=== PATIENT | male | born 1960 | race Asian ===

== ENCOUNTER 2017-10-21 20:07 | Emergency (ER) | payer BC ==
[~2017-10-21] VITALS: Ht 177.8 cm; Wt 86.2 kg
[~2017-10-21 20:07] MED LIST: ALLO100T PO
[2017-10-21 20:15] VITALS: BP_SYST 176
--- NOTE | 2017-10-21 20:20 | NUR ---
Patient to ER bed 07 to gown for evaluation. Side rails up. Report given to STEPHANI CHAVEZ
--- NOTE | 2017-10-21 20:25 | NUR ---
Pt AAOx4 ambulated into ED c/o 02/05 abdominal pain x 22 days s/p liver biopsy. Pt takes protonix today with little relief. Pt denies N/V. 1 episode of diarrhea. No other injuries/complaints per pt/noted. Will continue to monitor. Friends at bedside.
--- NOTE | 2017-10-21 20:30 | NUR ---
ER Dr. Cuello at bedside examining patient.
[2017-10-21] MEDS ORDERED: NACL 0.9% 1,000 ML IV ONE (20:45)
[2017-10-21] MEDS ORDERED: LIDOCAINE VISCOUS 2%, 15 ML UDC MM ONE (21:15)
[2017-10-21] MEDS ORDERED: BELLADONNA ALKALOIDS/PHENOBARB 5 ML UDC PO ONE (21:15)
[2017-10-21] MEDS ORDERED: MAG-AL HYDROX/SIMETH 30 ML UDC PO ONE (21:15)
--- NOTE | 2017-10-21 21:35 | NUR ---
Pt laying comfortably in bed with no signs of distress. at bedside. Will continue to monitor.
[2017-10-21 22:22] LABS: BASOPHILS % (AUTO) 1.6 % (0.0-2.0); EOSINOPHILS # (AUTO) 0.3 K/uL (0.0-0.4); EOSINOPHILS % (AUTO) 10.9 % (0.0-4.0); HEMATOCRIT 41.1 % (36-54); HEMOGLOBIN 13.7 g/dL (14.0-18.0); LYMPHOCYTES # (AUTO) 0.6 K/uL (1.0-5.5); LYMPHOCYTES % (AUTO) 23.6 % (20.5-51.5); MEAN CORPUSCULAR HEMOGLOBIN 31 pg (27-31); MEAN CORPUSCULAR HGB CONC 33 % (32-36); MEAN CORPUSCULAR VOLUME 93 fL (79.0-98.0); MONOCYTES # (AUTO) 0.2 K/uL (0.0-1.0); MONOCYTES % (AUTO) 8.7 % (1.7-9.3); NEUTROPHILS # (AUTO) 1.4 K/uL (1.8-7.7); NEUTROPHILS % (AUTO) 55.2 % (40.0-70.0); PLATELET COUNT (AUTO) 50 K/uL (130-430); RED BLOOD CELL COUNT(AUTO) 4.43 MIL/uL (4.2-6.2); RED CELL DISTRIBUTION WIDTH 13.9 % (9.0-15.0); WHITE BLOOD COUNT (AUTO) 2.5 K/uL (4.8-10.8)
[2017-10-21 22:34] LABS: INR 1.3 (0.80-1.20); PROTHROMBIN TIME 13.1 SECS (9.5-12.5)
[2017-10-21 22:36] LABS: CREATININE 0.9 mg/dL (0.55-1.30); POTASSIUM 3.9 mmol/L (3.5-5.1)
[2017-10-21 22:41] LABS: ALBUMIN 3.5 g/dL (3.4-4.8); TOTAL BILIRUBIN 2.6 mg/dL (0.0-1.0)
--- NOTE | 2017-10-21 23:03 | NUR ---
Patient given written and verbal discharge instructions and verbalizes understanding. ER MD Cuello discussed with patient the results and treatment provided. Patient in stable condition. ID arm band removed. IV catheter removed intact and dressing applied, no active bleeding. Rx of Tramadol given. Patient educated on pain management and to follow up with PMD. Pain Scale 0. Opportunity for questions provided and answered. Medication side effect fact sheet provided.
[2017-10-21 23:31] VITALS: BP_SYST 143
== END 2017-10-21 23:03 | disposition home or self-care (01) ==
LOC: SED 20:07
DX: K29.70 Gastritis, unspecified, without bleeding (principal); K57.90 Diverticulosis of intestine, part unspecified, without perforation or abscess without bleeding; D72.819 Decreased white blood cell count, unspecified; M10.9 Gout, unspecified
CPT/HCPCS: 36415; 74176; 80053; 85025; 85610; 85730; 99285; J2001; J7030

== ENCOUNTER 2018-02-05 22:02 | Inpatient (IN) | payer BC ==
[~2018-02-05] VITALS: Ht 180.3 cm; Wt 83.3 kg
[2018-02-05 22:12] VITALS: BP_SYST 153
--- NOTE | 2018-02-05 22:15 | NUR ---
Patient to bed 3 to await MD evaluation.
--- NOTE | 2018-02-05 22:20 | NUR ---
Patient to ER via triage with c/o generalized weakness x 1 day, and diarrhea x 1 day. Patient also c/o abdominal discomfort, patient is confused which is not his baseline. Patient is awake, alert but confused, patient able to ambulate to ER bed 3 with slow, steady gait in no acute distress, vital signs stable, respirations even and unlabored, skin warm and dry to touch. Awaiting evaluation by ER MD, will continue to observe and assess.
--- NOTE | 2018-02-05 22:25 | NUR ---
Dr Cuello at bedside to evaluate patient.
[2018-02-05] MEDS ORDERED: NACL 0.9% 1,000 ML IV ONE (22:30)
[2018-02-05 22:56] LABS: BASOPHILS % (AUTO) 1.2 % (0.0-2.0); EOSINOPHILS # (AUTO) 0.6 K/uL (0.0-0.4); EOSINOPHILS % (AUTO) 19.9 % (0.0-4.0); HEMATOCRIT 35.7 % (36-54); HEMOGLOBIN 11.9 g/dL (14.0-18.0); LYMPHOCYTES # (AUTO) 0.6 K/uL (1.0-5.5); LYMPHOCYTES % (AUTO) 18.5 % (20.5-51.5); MEAN CORPUSCULAR HEMOGLOBIN 33 pg (27-31); MEAN CORPUSCULAR HGB CONC 33 % (32-36); MEAN CORPUSCULAR VOLUME 100 fL (79.0-98.0); MONOCYTES # (AUTO) 0.3 K/uL (0.0-1.0); MONOCYTES % (AUTO) 8.1 % (1.7-9.3); NEUTROPHILS # (AUTO) 1.6 K/uL (1.8-7.7); RED BLOOD CELL COUNT(AUTO) 3.59 MIL/uL (4.2-6.2); RED CELL DISTRIBUTION WIDTH 19.7 % (9.0-15.0); WHITE BLOOD COUNT (AUTO) 3.1 K/uL (4.8-10.8)
--- NOTE | 2018-02-05 23:00 | NUR ---
Medication reconciliation completed with information provided by family. Any prior medication reconciliation on file was reviewed and corrected. Family also reports that patient takes a "medication for his heart, and a medication for his BP" Family does not remember the names of the medications.
[2018-02-05 23:08] LABS: ANION GAP 7 (5-15); CALCIUM 8.6 mg/dL (8.4-11.0); CHLORIDE 105 mmol/L (98-107); CREATININE 1.21 mg/dL (0.55-1.30); GLUCOSE 94 mg/dL (70-99); POTASSIUM 3.7 mmol/L (3.5-5.1); SODIUM SERUM 137 mmol/L (136-145); UREA NITROGEN, BLOOD 18 mg/dL (8-21)
[2018-02-05 23:13] LABS: ALANINE AMINOTRANSFERASE 66 U/L (12-78); ALBUMIN 2.7 g/dL (3.4-4.8); ASPARTATE AMINOTRANSFERASE 58 U/L (10-37); TOTAL BILIRUBIN 3.1 mg/dL (0.0-1.0)
[2018-02-05 23:16] LABS: GFR AFRICAN AMERICAN 79 mL/min (>90)
[2018-02-05] MEDS ORDERED: LACT10SO66 PO (23:17)
[2018-02-05 23:18] LABS: ACETAMINOPHEN < 1 ug/mL (1-30)
[2018-02-05 23:23] LABS: ALCOHOL, BLOOD < 3 mg/dL (<10)
[2018-02-05 23:24] LABS: BARBITURATE, URINE NEGATIVE (NEG <=200); BENZODIAZEPINE, URINE NEGATIVE (NEG <=150); CANNABINOID, URINE NEGATIVE (NEG <=50); COCAINE, URINE NEGATIVE (NEG <=150); METHAMPHETAMINES SCREEN,URINE NEGATIVE (NEG <=500); OPIATE, URINE NEGATIVE (NEG <=100); PHENCYCLIDINE SCREEN,URINE NEGATIVE (NEG <=25); UR TRICYCLIC ANTIDEPRESSANTS NEGATIVE (NEG <=300); URINE AMPHETAMINE NEGATIVE (NEG <=500); URINE METHADONE NEGATIVE (NEG <=200); URINE OXYCODONE SCREEN NEGATIVE (NEG <=100); URINE PROPOXYPHENE SCREEN NEGATIVE (NEG <=300)
[2018-02-05 23:44] LABS: NEUTROPHILS % (AUTO) 52.3 % (40.0-70.0); PLATELET COUNT (AUTO) 60 K/uL (130-430)
[2018-02-06] MEDS ORDERED: NEOMYCIN SULFATE 500 MG TABLET PO ONE
--- NOTE | 2018-02-06 | NUR ---
Patient resting quietly in no acute distress, vital signs stable, respirations even and unlabored, skin warm and dry to touch. Awaiting dispo.
[2018-02-06] MEDS ORDERED: NEOMYCIN SULFATE 500 MG TABLET ONE (00:31)
--- NOTE | 2018-02-06 01:00 | NUR ---
Patient will be admitted to care of Dr Wilkins. Admitted to tele unit. Will go to room 104-B. Belongings list completed. Summary report printed. Report will be given at bedside. Transfer to tele room 104-B via ACLS protocol. Licensed nurse present. IV present no signs or symptoms of infiltration.
--- NOTE | 2018-02-06 01:21 | NUR ---
ADMISSION NOTE Received patient from ER via rney under the care of Dr Wilkins. Patient admitted with diagnosis of Altered Level of Consciousness. Patient is awake, alert, oriented X 2 at this time. Patient oriented to hospital room, call light, toileting, pain management but does not shows complete understanding. Patient informed that his nurse will be Elva and that his room number is 104B. Call light within reach.Will continue to monitor patient's condition.
[2018-02-06 01:30] VITALS: BP_SYST 136
[2018-02-06 01:51] VITALS: BP_SYST 136
--- NOTE | 2018-02-06 02:18 | NUR ---
CONSULT CONSULT CALLED FOR AILYN Addendum: 02/06/18 at 0350 by Danika Akbar [facility] [place], [place] CONSULT CALLED FOR DR. MALCOLM I SPOKE WITH MICHAEL CARLTON ORTHO NURSE THIS MORNING REASON FOR CONSULT: [facility] REQUESTING CONSULT: DR. RAMSAY NUMBER I CALLED: [phone]
--- NOTE | 2018-02-06 06:45 | NUR ---
pt.was admitted via the er-dept;@approximately:0125a.pt.presents aloc;slight.pt.presents aloc status resolved @the completion of the shift.i have assisted the pt.to the restroom x5.pt.presents steady gait.pt.was received w/the ns bolus infusing.the ns bolus had completed.pt.presents general status stable absent distress/discomfort.pt.presents respiratory status stable absent distress/ discomfort.i had provided the pt.with snacks.pt.presents no c/o pain/nausea.pt.requested assistance w/telephone to call sig-other: annmarie;maria esther.i conveyed the pt's update w/in nsg scope.no medications scheduled;pt.received;medications;neomycin, 400mg po,lactulose;20gm's x1 administered w/in the er-dept.call light/telephone placed w/in the pt's reach. Addendum: 02/06/18 at 0912 by Salvador Ba RN ;gi ordered consult.consult paged.
--- NOTE | 2018-02-06 07:42 | NUR ---
RN OPENING NOTE Report was endorsed by night nurse at bed side. Patient is awake and alert, educated rn neonatal icu light for assistance, his call light is with him. Patient is close to nurses station all safety precautions in place. Vital signs are stable. Patient has no complaints at this time. Will continue to monitor.
[2018-02-06 07:48] VITALS: BP_SYST 124
--- NOTE | 2018-02-06 09:40 | NUR ---
rn tracee Patient is awake and alert, ambulated to bathroom and back to bed gait is steady. Patient shows no signs of ALOC, alert and oriented. Patient educated supervisor [employer] light for assistance , his call light is with him. Patient requesting to walk out side educated that we are monitoring his heart and for safety he has to stay on the floor. Educated he can walk around the [address] ways around the unit i will continue to monitor him. Patient verbalized understanding. Patient has no other needs at this time .
[2018-02-06] MEDS ORDERED: LACTULOSE 20 GM/30 ML UDC PO ONE ×2 (11:30)
[2018-02-06] MEDS ORDERED: ALLOPURINOL 100 MG TABLET (ZYLOPRIM) PO ONE (11:30)
--- NOTE | 2018-02-06 12:40 | NUR ---
AMA Patient left Against medical advise. MD is at nurses station and is aware. Patient is alert and oriented. Patient provided with note for work by Md copy in chart. IV catheter removed,catheter is intact and applied gauze and tape to insertion site. Patient is aware not being discharge, patient signed AMA paper verbalized understanding on meaning of AMA . Patient ID band removed. at bedside to take patient home. no other needs at this time
[2018-02-06 12:42] VITALS: BP_SYST 135
[2018-02-06] MEDS ORDERED: LACTULOSE 20 GM/30 ML UDC PO SCH (21:00)
[2018-02-07] MEDS ORDERED: ALLOPURINOL 100 MG TABLET (ZYLOPRIM) PO SCH (09:00)
== END 2018-02-06 12:40 | disposition left against medical advice (07) | DRG 433 ==
LOC: SED 22:02 → STU 02-06 00:42
PROVIDERS: ADMIT Internal Medicine; ATTEND Internal Medicine
DX: K74.60 Unspecified cirrhosis of liver (principal); R18.8 Other ascites; D61.818 Other pancytopenia; K72.90 Hepatic failure, unspecified without coma; M10.9 Gout, unspecified; Z53.21 Procedure and treatment not carried out due to patient leaving prior to being seen by health care provider; D63.8 Anemia in other chronic diseases classified elsewhere; Z79.899 Other long term (current) drug therapy
CPT/HCPCS: 36415; 80053; 80307; 82140-TC; 85025; 87040-TC; 93005; 96360; 96361; 99285; G0480; G0481; G0482

== ENCOUNTER 2018-02-22 21:54 | Inpatient (IN) | payer BC ==
[~2018-02-22] VITALS: Ht 177.8 cm; Wt 80.7 kg
[~2018-02-22 21:54] MED LIST changes: +LACT10SO66 PO
--- NOTE | 2018-02-22 21:59 | NUR ---
Placed in room 2 . Placed on nurse monitoring, blood pressure machine and pulse oximeter. To gown for exam. Side rails up. Report given to Connie STYLES.
[2018-02-22 22:00] VITALS: BP_SYST 124
--- NOTE | 2018-02-22 22:25 | NUR ---
Assumed care of the patient at this time. Patient ambulatory to the restroom with steady gait. No signs of distress noted.
--- NOTE | 2018-02-22 22:25 | NUR ---
Patient AAOx4, ambulatory. Patient states having epigastric pain with pain scale 5/10 since approximately 1 hour prior to ER visit. Patient states he was "admitted to the hospital 2 weeks ago for cirrhosis." Patient denies nausea, vomiting, and diarrhea. Patient states pain does not radiate. Patient's abdomen is firm and distended. Patient denies difficulty with urination and bowel movements. Patient denies any other complaints.
[2018-02-22] MEDS ORDERED: NACL 0.9% 1,000 ML IV ONE (22:41)
--- NOTE | 2018-02-22 22:41 | NUR ---
ER Dr. Fontenot at bedside examining patient.
[2018-02-22] MEDS ORDERED: MAG HYDROX/AL HYDROX/SIMETH 30 ML, BELLADONNA ALKALOIDS/PHENOBARB 10 ML, LIDOCAINE VISC... PO ONE ×3 (22:45)
[2018-02-22 22:56] LABS: BILIRUBIN,URINE 1+ (NEGATIVE); CLARITY/URINE CLEAR (CLEAR); COLOR,URINE YELLOW (YELLOW); GLUCOSE,URINE NEGATIVE (NEGATIVE); KETONES,URINE NEGATIVE (NEGATIVE); LEUKOCYTE ESTERASE ,URINE NEGATIVE (NEGATIVE); NITRITE, URINE NEGATIVE (NEGATIVE); PH,URINE 6.5 (5.0-8.0); PROTEIN URINE TRACE (NEGATIVE); UROBILINOGEN,URINE 0.2 (0.2-1.0)
[2018-02-22 22:58] LABS: BLOOD, URINE TRACE (NEGATIVE)
[2018-02-22 23:03] LABS: HEMOGLOBIN 11.8 g/dL (14.0-18.0); MEAN CORPUSCULAR HEMOGLOBIN 34 pg (27-31); MEAN CORPUSCULAR HGB CONC 34 % (32-36); MEAN CORPUSCULAR VOLUME 102 fL (79.0-98.0); RED BLOOD CELL COUNT(AUTO) 3.44 MIL/uL (4.2-6.2); RED CELL DISTRIBUTION WIDTH 17.9 % (9.0-15.0); WHITE BLOOD COUNT (AUTO) 2.6 K/uL (4.8-10.8)
[2018-02-22 23:16] LABS: CALCIUM 8.3 mg/dL (8.4-11.0); CREATININE 1.22 mg/dL (0.55-1.30); INR 1.2 (0.80-1.20); POTASSIUM 4.3 mmol/L (3.5-5.1); PROTHROMBIN TIME 12.6 SECS (9.5-12.5)
[2018-02-22 23:18] LABS: PLATELET COUNT (AUTO) 83 K/uL (130-430)
[2018-02-22 23:22] LABS: ALBUMIN 2.7 g/dL (3.4-4.8)
[2018-02-22 23:25] LABS: BACTERIA,URINE FEW /HPF (None Seen)
[2018-02-22 23:26] LABS: FINE GRANULAR CASTS,URINE 0-10 /LPF (None Seen); HYALINE CASTS, URINE 0-10 /LPF (None Seen); MUCUS,URINE 2+ /LPF (None Seen)
[2018-02-22 23:45] LABS: BAND % (MANUAL) 17 % (0-6); BASOPHILS % (MANUAL) 0 % (0-2); EOSINOPHILS % (MANUAL) 7 % (0-7); LYMPHOCYTES % (MANUAL) 5 % (20-46); MONOCYTES % (MANUAL) 3 % (0-11)
--- NOTE | 2018-02-23 | NUR ---
Patient is calmly resting in ER bed, no signs of distress noted. Vital signs are within therapeutic range.
--- NOTE | 2018-02-23 00:38 | NUR ---
Medication reconciliation partially completed. Patient states he takes more medication but cannot remember the names of the other medications.
[2018-02-23] MEDS ORDERED: SUCRALFATE 1 GM TABLET PO PRN (02:00)
[2018-02-23] MEDS ORDERED: MAG-AL HYDROX/SIMETH 30 ML UDC PO PRN (02:00)
--- NOTE | 2018-02-23 02:00 | NUR ---
Note marisela in ED - 02/23/18 at 0230 by SDGIOVANYEJ Patient is calmly resting ni ER bed, no signs of distress noted. Vital signs were reassessed.
--- NOTE | 2018-02-23 02:00 | NUR ---
Patient is calmly resting in ER bed, no signs of distress noted. Vital signs were reassessed.
--- NOTE | 2018-02-23 02:10 | NUR ---
Patient will be admitted to care of Dr. Wilkins. Admitted to med surg unit. Will go to room 107 B. Belongings list completed. Summary report printed. Report given to Lexis STYLES at bedside.
--- NOTE | 2018-02-23 02:19 | NUR ---
ADMISSION NOTE Received patient from ER via gurparesh, received report from RN. Patient admitted with diagnosis of liver cirrhosis. Patient oriented to hospital routine, call light, toileting and safety-patient verbalized understanding.
[2018-02-23 02:20] VITALS: BP_SYST 122
--- NOTE | 2018-02-23 02:39 | NUR ---
MRSA of the Nares collected & sent to lab .
--- NOTE | 2018-02-23 02:40 | NUR ---
PROCEDURES EXPLAINED , PATIENT ALERT ambulatory with assist bed alarm is on , HOB elevated on room air 02 sat 95 % chest movement symmetrical unlabored .
--- NOTE | 2018-02-23 04:55 | NUR ---
CONSULT CONSULT CALLED FOR DR. MALCOLM I SPOKE WITH MICHAEL NAIK REASON FOR CONSULT: ABD PAIN / CIRRHOSIS REQUESTING CONSULT: DR. RAMSAY NUMBER I CALLED: [phone]
--- NOTE | 2018-02-23 06:12 | NUR ---
Hourly Rounding patient resting on room air 02 SAT 96 % call witt with patient .
[2018-02-23 08:00] VITALS: BP_SYST 128
--- NOTE | 2018-02-23 08:12 | NUR ---
RN OPENING NOTE PATIENT RESTING ON BED, ALERT ORIENTED X4, VITAL SIGNS ARE STABLE. PATIENT DENIES PAIN OR DISCOMFORT. PATIENT WAS ASSESSED. BED AT LOW POSITION, CALL LIGHT WITHIN REACH, WILL EXPLAIN THE SIDE EFFECTS OF PROTONIX TO THE PATIENT. PATIENT WAS ENCOURAGED TO CALL FOR ANY NEEDS OR FOR AMBULATING TO THE BATHROOM, WILL CONTINUE TO MONITOR.
[2018-02-23] MEDS: PANTOPRAZOLE SODIUM 40 MG/VIAL (PROTONIX) IVP SCH ×2 (08:31→20:30)
--- NOTE | 2018-02-23 10:00 | NUR ---
RN NOTE PATIENT RESTING ON BED. ALERT ORIENTED, DR. RAMSAY WAS PAGED TO ORDER THE LACTULOSE FOR THE PATIENT, PATIENT DENIES PAIN OR DISCOMFORT. PATIENT HAS SOME ABDOMINAL DISTENTION. CALL LIGHT WITHIN REACH AND BED AT LOW POSITION WILL CONTINUE TO MONITOR.
--- NOTE | 2018-02-23 10:55 | NUR ---
ATTENDING MD DR RAMSAY WAS CALLED RE: HIGH AMMONIA LEVEL. SPOKE TO MALCOLM.
[2018-02-23] MEDS ORDERED: ONDANSETRON HCL 4 MG/2 ML VIAL IVP PRN (11:30)
[2018-02-23] MEDS ORDERED: traMADol HCL HCL 50 MG TABLET (ULTRAM) PO PRN ×2 (11:30)
--- NOTE | 2018-02-23 12:00 | NUR ---
RN NOTE CONSENT FOR PARACENTESIS WILL BE SIGNED BY THE PATIENT, PATIENT WAS TOLD ABOUT THE PROCEDURE, WE CONTACTED THE WHO WILL DO THE CENTESIS, TO COME TO EXPLAIN THE RISK AND BENEFIT TO THE PATIENT, FAMILY MEMBERS ARE BY THE BEDSIDE,
[2018-02-23 13:09] VITALS: BP_SYST 115
[2018-02-23] MEDS ORDERED: LIDOCAINE 1%, 20 ML MDV 20 ML ONE (13:45)
[2018-02-23] MEDS ORDERED: LACTULOSE 20 GM/30 ML UDC PO ONE (13:46)
[2018-02-23] MEDS ORDERED: ALLOPURINOL 100 MG TABLET (ZYLOPRIM) PO ONE (13:46)
--- NOTE | 2018-02-23 14:30 | NUR ---
RN NOTE SUPPLIES WERE BROUGHT TO BEDSIDE, CONSENT FOR ABDOMINAL GUIDED PARACENTESIS WAS SIGNED BY THE PATIENT, CAME OVER AND CONNECTED THE PATIENTS TO THE DRAINAGE BOTTLES. . PATIENT TOLERATED THE PROCEDURE VERY WELL. WILL SEND THE ASCITIC SAMPLE TO THE LAB.
--- NOTE | 2018-02-23 16:00 | NUR ---
RN NOTE PATIENT WAS GIVEN HIS LACTULOSE. WELL ALLUPURINOL PRESCRIBED, PATIENT RESTING ON BED, FEELING BETTER AFTER THE PARACENTESIS. FAMILY MEMBERS WERE EDUCATED ABOUT FALL PREVENTION WITH THE PATIENT, PATIENT IS ALERT, DENIES PAIN. WILL CONTINUE TO MONITOR.
[2018-02-23 16:47] VITALS: BP_SYST 119
--- NOTE | 2018-02-23 18:00 | NUR ---
RN CLOSING NOTE PATIENT RESTING ON BED, DENIES PAIN OR DISCOMFORT, ALERT ORIENTED X 4, PATIENT WAS SERVED HIS DINNER, HE HAS A GREAT APPETITE. FAMILY MEMBERS LEFT ALREADY, BED AT LOW POSITION AND PATIENT FEELS BETTER AFTER THE PARACENTESIS. WILL ENDORSE TO NEXT SHIFT.
[2018-02-23] MEDS ORDERED: SPIRONOLACTONE 25 MG TABLET (ALDACTONE) PO ONE (18:30)
[2018-02-23] MEDS ORDERED: FUROSEMIDE 40 MG/4 ML VIAL IVP ONE (18:30)
--- NOTE | 2018-02-23 19:15 | NUR ---
OPENING NOTE RECEIVED PT AND REPORT FROM DAY SHIFT. PT IS AWAKE IN BED. PT DENIES ANY PAIN OR DISCOMFORT. IV IS INTACT AND SALINE LOCKED. PT IS ON ROOM AIR. BREATHING EVEN AND UNLABORED. EDUCATED REGARDING PLAN OF CARE, PT VERBALIZED UNDERSTANDING.FALL AND SAFETY PRECAUTIONS IN PLACE. BED LOCKED IN LOWEST POSITION, BED ALARM ON. CALL LIGHT WITH PT. WILL CONTINUE TO MONITOR.
[2018-02-23 20:00] VITALS: BP_SYST 135
[2018-02-23] MEDS: LACTULOSE 20 GM/30 ML UDC PO SCH (20:30)
--- NOTE | 2018-02-23 20:30 | NUR ---
MEDICATION ADMINISTRATION ADMINISTERED MEDICATION PER ORDERS. EDUCATED PT REGARDING MEDICATION, PT VERBALIZED UNDERSTANDING. PROVIDED PT WITH UTENSILS. NO OTHER NEEDS. WILL CONTINUE TO MONITOR.
--- NOTE | 2018-02-23 22:50 | NUR ---
ROUNDING NOTE PT IS RESTING IN BED, WATCHING TELEVISION. DAUGHTER AT BEDSIDE. EMPTIED URINAL. NO OTHER NEEDS. WILL CONTINUE TO MONITOR. CALL LIGHT WITH PT.
[2018-02-23 23:48] LABS: BF APPEARANCE UNSPUN CLOUDY (CLEAR); BODY FLUID SOURCE/ TYPE ASCITES; SOURCE/TYPE ,BODY FLUID ASCITES
[2018-02-23 23:51] LABS: BODY FLUID COLOR YELLOW (LT YELLOW); BODY FLUID TOTAL VOLUME 2300 mL; EOSINOPHIL, BODY FLUID 0 %; LYMPHOCYTES, BODY FLUID 0 %; MONOCYTES,BODY FLUID 21 %; NEUTROPHIL, BODY FLUID 79 %; RBC, BODY FLUID 1494 /uL; WBC, BODY FLUID 13439 /uL
[2018-02-23 23:52] LABS: APPEARANCE,SPUN,BODY FLUID CLEAR (CLEAR)
[2018-02-24 00:15] VITALS: BP_SYST 111
--- NOTE | 2018-02-24 00:35 | NUR ---
ROUNDING NOTE PT IS SLEEPING IN BED. NO S/S OF ACUTE DISTRESS. WILL CONTINUE TO MONITOR. CALL LIGHT WITH PT.
--- NOTE | 2018-02-24 02:25 | NUR ---
ROUNDING NOTE PATIENT IS SLEEPING IN BED. NO S/S OF DISTRESS OR DISCOMFORT. WILL CONTINUE TO MONITOR. CALL LIGHT WITH PT.
--- NOTE | 2018-02-24 04:30 | NUR ---
ROUNDING NOTE PT SLEEPING IN BED. NO S/S OF DISTRESS OR DISCOMFORT. CALL LIGHT WITH PT. WILL CONTINUE TO MONITOR.
--- NOTE | 2018-02-24 06:26 | NUR ---
CLOSING NOTE WILL ENDORSE CARE AND REPORT TO DAY SHIFT NURSE. PT IS SLEEPING IN BED AT THIS TIME. PT IN STABLE CONDITION. ALL NEEDS MET THROUGHOUT SHIFT. NO SIGNIFICANT CHANGES TO NOTE DURING SHIFT. CALL LIGHT WITH PT. WILL CONTINUE TO MONITOR.
--- NOTE | 2018-02-24 07:15 | NUR ---
Opening Note Patient resting in bed, eyes closed, positioned to his side, snoring, breathing unlabored on room air, IV site saline locked, safety precautions in place, bedside table and call light within reach, will be back to check on patient
[2018-02-24 07:41] LABS: ALBUMIN 2.1 g/dL (3.4-4.8); CALCIUM 8.4 mg/dL (8.4-11.0); CREATININE 1.49 mg/dL (0.55-1.30); POTASSIUM 4.2 mmol/L (3.5-5.1); TOTAL BILIRUBIN 4.9 mg/dL (0.0-1.0)
[2018-02-24 08:25] LABS: EOSINOPHILS # (AUTO) 0.1 K/uL (0.0-0.4); LYMPHOCYTES # (AUTO) 0.6 K/uL (1.0-5.5); MONOCYTES # (AUTO) 0.4 K/uL (0.0-1.0); NEUTROPHILS # (AUTO) 2.5 K/uL (1.8-7.7); WHITE BLOOD COUNT (AUTO) 3.6 K/uL (4.8-10.8)
[2018-02-24 08:31] LABS: BASOPHILS % (AUTO) 0.7 % (0.0-2.0); EOSINOPHILS % (AUTO) 3.7 % (0.0-4.0); HEMATOCRIT 31.7 % (36-54); HEMOGLOBIN 10.7 g/dL (14.0-18.0); MEAN CORPUSCULAR HEMOGLOBIN 35 pg (27-31); MEAN CORPUSCULAR HGB CONC 34 % (32-36); MEAN CORPUSCULAR VOLUME 102 fL (79.0-98.0); MONOCYTES % (AUTO) 10.4 % (1.7-9.3); NEUTROPHILS % (AUTO) 68.2 % (40.0-70.0); RED CELL DISTRIBUTION WIDTH 17.5 % (9.0-15.0)
[2018-02-24 08:33] LABS: PLATELET COUNT (AUTO) 41 K/uL (130-430)
[2018-02-24] MEDS ORDERED: SPIRONOLACTONE 25 MG TABLET (ALDACTONE) PO SCH (09:00)
[2018-02-24 09:30] VITALS: BP_SYST 111
--- NOTE | 2018-02-24 09:40 | NUR ---
Medication Administration Patient sitting up in bed, awake and alert, assessed vitals, no complaints of pain, educated him regarding medications and safety, verbalized understanding, IV site patent and in tact, educated patient regarding use of call light for assistance, verbalized understanding, call light and bedside table within reach, will continue to monitor
[2018-02-24] MEDS: PANTOPRAZOLE SODIUM 40 MG/VIAL (PROTONIX) IVP SCH ×2 (09:47→20:36)
[2018-02-24] MEDS: FUROSEMIDE 40 MG/4 ML VIAL IVP SCH (09:47)
[2018-02-24] MEDS: LACTULOSE 20 GM/30 ML UDC PO SCH ×2 (09:48→20:36)
[2018-02-24] MEDS: ALLOPURINOL 100 MG TABLET (ZYLOPRIM) PO SCH (09:48)
[2018-02-24] MEDS ORDERED: RIFAXIMIN 200 MG TABLET PO ONE (11:45)
[2018-02-24] MEDS: LEVOFLOXACIN 250 MG/D5W 50 ML IV SCH (12:11)
--- NOTE | 2018-02-24 12:22 | NUR ---
Antibiotics Hung/Spoke with educated patient regarding medication, verbalized understanding, IV site patent, spoke with Teresa over the phone, updated her on plan of care, patient has no complaints of pain, breathing unlabored on room air, educated patient on use of call light for assistance, verbalized understanding, safety precautions in place, bedside table and call light within reach, will continue to monitor
[2018-02-24 12:36] VITALS: BP_SYST 106
--- NOTE | 2018-02-24 14:17 | NUR ---
Patient Resting in Bed eyes closed, breathing unlabored on room air, symmetrical chest expansion, IV site saline locked, positioned with head of bed elevated, no signs of distress, safety precautions remain in place, bedside table and call light within reach, will continue to monitor
--- NOTE | 2018-02-24 15:02 | NUR ---
Dr. Wilkins Rounds at this time, will follow through with MD prasad
--- NOTE | 2018-02-24 16:08 | NUR ---
Patient Walking Around Unit with family, steady gait, no complaints of pain, educated him regarding safety precautions and safe ambulation, verbalized understanding, safety precautions remain in place, will continue to monitor patient
[2018-02-24 16:44] VITALS: BP_SYST 148
--- NOTE | 2018-02-24 16:58 | NUR ---
Antibiotics Hung at this time, family at bedside, educated patient and family regarding antibiotics, verbalized understanding, updated them on plan of care, verbalized understanding, IV site patent, no complaints of pain, safety precautions remain in place, bedside table and call light within reach, will continue to monitor
[2018-02-24] MEDS ORDERED: NADO20TA9 PO (17:16)
[2018-02-24] MEDS ORDERED: PANT20TA2 PO (17:16)
[2018-02-24] MEDS ORDERED: SPIR25TA PO (17:17)
[2018-02-24] MEDS ORDERED: RIFA550T5 PO (17:17)
[2018-02-24] MEDS ORDERED: FURO-149 PO (17:17)
--- NOTE | 2018-02-24 18:47 | NUR ---
Closing Note Patient sitting up in bed watching TV, no complaints of pain, IV site saline locked, breathing unlabored on room air, no other needs at this time, safety precautions in place, bedside table and call light within reach, will endorse to operations supervisor 2nd shift nurse
--- NOTE | 2018-02-24 19:00 | NUR ---
OPENING NOTE RECEIVED PT AND REPORT FROM DAY SHIFT. PT IS LAYING IN BED, DENIES ANY PAIN OR DISCOMFORT. SPEAKS CZECH AND ABLE TO VERBALIZE NEEDS. BREATHING EVEN AND UNLABORED. FRIENDS ARE AT BEDSIDE. IV IS INTACT AND SALINE LOCKED. FALL AND SAFETY PRECAUTION IN PLACE. BED LOCKED IN LOWEST POSITION, BED ALARM DISABLED WHILE FRIENDS AT BEDSIDE, PT IS STEADY UPON AMBULATION. CALL LIGHT WITH PT. WILL CONTINUE TO MONITOR.
[2018-02-24 20:00] VITALS: BP_SYST 120
[2018-02-24] MEDS: RIFAXIMIN 550 MG TABLET PO SCH (20:36)
--- NOTE | 2018-02-24 20:36 | NUR ---
MEDICATION ADMINISTRATION ADMINISTERED MEDICATION PER ORDERS. PROVIDED TEACHING ON MEDICATION, PT VERBALIZED UNDERSTANDING. NO NEEDS AT THIS TIME. CALL LIGHT WITH PT. WILL CONTINUE TO MONITOR.
--- NOTE | 2018-02-24 21:00 | NUR ---
PT AMBULATING TO [facility] PT [facility]. PT IS STEADY AND DENIES ANY DIZZINESS. WILL CONTINUE TO MONITOR.
--- NOTE | 2018-02-24 22:35 | NUR ---
ROUNDING NOTE PT RESTING IN BED. FRIENDS AT BEDSIDE. CALL LIGHT WITH PT.
[2018-02-25 00:07] VITALS: BP_SYST 127
--- NOTE | 2018-02-25 00:15 | NUR ---
ROUNDING NOTE PT RESTING IN BED. PROVIDED WITH EXTRA BLANKET AND TURNED OFF LIGHTS FOR COMFORT. NO OTHER NEEDS. WILL CONTINUE TO MONITOR. CALL LIGHT WITH PT.
--- NOTE | 2018-02-25 01:04 | NUR ---
PRN PAIN MEDICATION ADMINISTERED PRN PAIN MEDICATION FOR SEVERE PAIN TO LEFT HAND. EDUCATED PT ON SIDE EFFECTS, PT VERBALIZED UNDERSTANDING. BED ALARM ON. WILL CONTINUE TO MONITOR.
--- NOTE | 2018-02-25 02:06 | NUR ---
ROUNDING NOTE PATIENT IS SLEEPING IN BED. NO S/S OF ACUTE DISTRESS. WILL CONTINUE TO MONITOR.
--- NOTE | 2018-02-25 03:00 | NUR ---
IV ABX ADMINISTERED IV ABX PER ORDERS. PT SLEEPING IN BED. BREATHING EVEN AND UNLABORED. WILL CONTINUE TO MONITOR. CALL LIGHT WITH PT.
--- NOTE | 2018-02-25 05:10 | NUR ---
ROUNDING NOTE PT SLEEPING IN BED. NO S/S OF DISTRESS OR DISCOMFORT. CALL LIGHT WITH PT. WILL CONTINUE TO MONITOR.
--- NOTE | 2018-02-25 06:44 | NUR ---
CLOSING NOTE WILL ENDORSE CARE AND REPORT TO DAY SHIFT NURSE. PT IS SLEEPING IN BED. NO S/S OF ACUTE DISTRESS. PT IN STABLE CONDITION. BREATHING EVEN AND UNLABORED. ALL NEEDS MET THROUGHOUT SHIFT. NO SIGNIFICANT CHANGES TO NOT. FALL AND SAFETY PRECAUTIONS MAINTAINED. CALL LIGHT WITH PT. WILL CONTINUE TO MONITOR.
[2018-02-25 07:07] LABS: ALBUMIN 2.2 g/dL (3.4-4.8); CALCIUM 8.2 mg/dL (8.4-11.0); CREATININE 1.42 mg/dL (0.55-1.30); POTASSIUM 3.6 mmol/L (3.5-5.1); TOTAL BILIRUBIN 3.4 mg/dL (0.0-1.0)
[2018-02-25 07:15] LABS: BASOPHILS % (AUTO) 0.5 % (0.0-2.0); EOSINOPHILS # (AUTO) 0.2 K/uL (0.0-0.4); EOSINOPHILS % (AUTO) 6.3 % (0.0-4.0); HEMATOCRIT 32.6 % (36-54); HEMOGLOBIN 11.3 g/dL (14.0-18.0); LYMPHOCYTES # (AUTO) 0.6 K/uL (1.0-5.5); LYMPHOCYTES % (AUTO) 20.9 % (20.5-51.5); MEAN CORPUSCULAR HEMOGLOBIN 35 pg (27-31); MEAN CORPUSCULAR HGB CONC 35 % (32-36); MEAN CORPUSCULAR VOLUME 102 fL (79.0-98.0); MONOCYTES # (AUTO) 0.2 K/uL (0.0-1.0); MONOCYTES % (AUTO) 6.9 % (1.7-9.3); NEUTROPHILS # (AUTO) 1.8 K/uL (1.8-7.7); RED BLOOD CELL COUNT(AUTO) 3.21 MIL/uL (4.2-6.2); WHITE BLOOD COUNT (AUTO) 2.8 K/uL (4.8-10.8)
[2018-02-25 07:34] LABS: BODY FLUID GLUCOSE 125 mg/dL; BODY FLUID TOTAL PROTEIN 0.6 g/dL
[2018-02-25 07:38] LABS: PLATELET COUNT (AUTO) 42 K/uL (130-430)
[2018-02-25 08:00] VITALS: BP_SYST 129
--- NOTE | 2018-02-25 08:00 | NUR ---
Opening Note Report received from [facility] shift nurse. Patient is currently resting in bed. IV is on the RAC 20g saline locked. Call light is within reach and bed is in low position. No signs of distress or any bleeding noted a the moment. Will continue to monitor.
[2018-02-25] MEDS ORDERED: SPIRONOLACTONE 25 MG TABLET (ALDACTONE) PO SCH (09:00)
[2018-02-25] MEDS: RIFAXIMIN 550 MG TABLET PO SCH (09:04)
[2018-02-25] MEDS: PANTOPRAZOLE SODIUM 40 MG/VIAL (PROTONIX) IVP SCH (09:06)
[2018-02-25] MEDS: LACTULOSE 20 GM/30 ML UDC PO SCH (09:07)
[2018-02-25] MEDS: FUROSEMIDE 40 MG/4 ML VIAL IVP SCH (09:07)
[2018-02-25] MEDS: ALLOPURINOL 100 MG TABLET (ZYLOPRIM) PO SCH (09:07)
--- NOTE | 2018-02-25 10:02 | NUR ---
Rounds Patient is resting in bed. Call light is within reach.
[2018-02-25 10:36] LABS: NEUTROPHILS % (AUTO) 65.4 % (40.0-70.0)
[2018-02-25 11:24] VITALS: BP_SYST 129
[2018-02-25] MEDS: LEVOFLOXACIN 250 MG/D5W 50 ML IV SCH (11:42)
[2018-02-25 12:00] VITALS: BP_SYST 124
--- NOTE | 2018-02-25 12:20 | NUR ---
Rounds Patient is eating lunch in bed. No signs of distress noted at the moment.
[2018-02-25 14:26] VITALS: BP_SYST 129
--- NOTE | 2018-02-25 14:38 | NUR ---
Rounds Dr. Wilkins rounded on the patient and stated that the patient is stable for discharge.
--- NOTE | 2018-02-25 15:09 | NUR ---
Transition of Care Note All transition of care paperwork were provided, prescriptions, and instructions were handed to the patient. He verbalized understanding of all. Iv and ID band were removed. Patient left the unit in stable condition accompanied by family and staff.
== END 2018-02-25 15:05 | disposition home or self-care (01) | DRG 432 ==
LOC: SED 21:54 → SMU 02-23 01:59
PROVIDERS: ADMIT Internal Medicine; ATTEND Internal Medicine
PROC: 0W9G3ZZ Drainage of Peritoneal Cavity, Percutaneous Approach (ICD-10-PCS; principal; 2018-02-23)
DX: K74.60 Unspecified cirrhosis of liver (principal); K65.2 Spontaneous bacterial peritonitis; N17.0 Acute kidney failure with tubular necrosis; R18.8 Other ascites; D61.818 Other pancytopenia; K72.90 Hepatic failure, unspecified without coma; M10.9 Gout, unspecified; Z79.899 Other long term (current) drug therapy
CPT/HCPCS: 36415; 49083; 71045; 80053; 81000-TC; 82042; 82140-TC; 82947-TC; 83605; 83690-TC; 84157-TC; 85007; 85025; 85027; 85610-TC; 85730-TC; 87040-TC; 87070-TC; 87081; 87086; 89051-TC; 89060-TC; 93005; 96360; 96361; 99285; C1729; C9113; J0696; J1940; J1956; J2001; J7030; J7060

== ENCOUNTER 2018-02-28 10:46 | Outpatient (CLI) | payer BC ==
[~2018-02-28 10:46] MED LIST changes: +FURO-149 PO; +NADO20TA9 PO; +PANT20TA2 PO; +RIFA550T5 PO; +SPIR25TA PO
[2018-02-28 11:24] LABS: HEMOGLOBIN 11.6 g/dL (14.0-18.0); MEAN CORPUSCULAR HEMOGLOBIN 35 pg (27-31); MEAN CORPUSCULAR HGB CONC 34 % (32-36); MEAN CORPUSCULAR VOLUME 101 fL (79.0-98.0); PLATELET COUNT (AUTO) 58 K/uL (130-430); RED BLOOD CELL COUNT(AUTO) 3.35 MIL/uL (4.2-6.2); RED CELL DISTRIBUTION WIDTH 16.7 % (9.0-15.0); WHITE BLOOD COUNT (AUTO) 2.3 K/uL (4.8-10.8)
[2018-02-28 11:39] LABS: ALBUMIN 2.6 g/dL (3.4-4.8); CALCIUM 9.1 mg/dL (8.4-11.0); CREATININE 1.55 mg/dL (0.55-1.30); TOTAL BILIRUBIN 2.2 mg/dL (0.0-1.0)
[2018-02-28 12:42] LABS: BAND % (MANUAL) 8 % (0-6); BASOPHILS % (MANUAL) 0 % (0-2); EOSINOPHILS % (MANUAL) 10 % (0-7); LYMPHOCYTES % (MANUAL) 29 % (20-46); MONOCYTES % (MANUAL) 7 % (0-11)
== END 2018-02-28 20:37 | disposition home or self-care (01) ==
LOC: SLB 10:46
PROVIDERS: ATTEND Internal Medicine
DX: K74.60 Unspecified cirrhosis of liver (principal); Z79.899 Other long term (current) drug therapy
CPT/HCPCS: 36415; 80053; 85007; 85027

== ENCOUNTER 2018-03-11 04:40 | Inpatient (IN) | payer BC ==
[~2018-03-11] VITALS: Ht 165.1 cm; Wt 84.8 kg
[2018-03-11 04:40] VITALS: BP_SYST 125
[2018-03-11] MEDS ORDERED: NACL 0.9% 1,000 ML IV ONE (05:24)
[2018-03-11 06:29] LABS: HEMATOCRIT 34.2 % (36-54); HEMOGLOBIN 11.7 g/dL (14.0-18.0); MEAN CORPUSCULAR HEMOGLOBIN 35 pg (27-31); MEAN CORPUSCULAR HGB CONC 34 % (32-36); MEAN CORPUSCULAR VOLUME 102 fL (79.0-98.0); PLATELET COUNT (AUTO) 57 K/uL (130-430); RED BLOOD CELL COUNT(AUTO) 3.37 MIL/uL (4.2-6.2); RED CELL DISTRIBUTION WIDTH 16.3 % (9.0-15.0); WHITE BLOOD COUNT (AUTO) 3.6 K/uL (4.8-10.8)
[2018-03-11] MEDS ORDERED: MORPHINE 2 MG/ML INJ. SYRINGE IVP PRN (06:30)
[2018-03-11] MEDS ORDERED: METOCLOPRAMIDE HCL 10 MG/2 ML VIAL IVP ONE (06:30)
[2018-03-11] MEDS ORDERED: MORPHINE 2 MG/ML INJ. SYRINGE IVP ONE (06:30)
[2018-03-11] MEDS ORDERED: ONDANSETRON HCL 4 MG/2 ML VIAL IVP PRN (06:30)
[2018-03-11 06:32] LABS: CALCIUM 8.5 mg/dL (8.4-11.0); CREATININE 1.34 mg/dL (0.55-1.30); POTASSIUM 3.9 mmol/L (3.5-5.1)
[2018-03-11 06:33] LABS: ALBUMIN 2.5 g/dL (3.4-4.8); TOTAL BILIRUBIN 2.5 mg/dL (0.0-1.0)
[2018-03-11 06:41] LABS: INR 1.2 (0.80-1.20); PROTHROMBIN TIME 11.8 SECS (9.5-12.5)
[2018-03-11 06:55] LABS: BILIRUBIN,URINE NEGATIVE (NEGATIVE); CLARITY/URINE SL HAZY (CLEAR); COLOR,URINE AMBER (YELLOW); GLUCOSE,URINE NEGATIVE (NEGATIVE); KETONES,URINE NEGATIVE (NEGATIVE); LEUKOCYTE ESTERASE ,URINE NEGATIVE (NEGATIVE); NITRITE, URINE NEGATIVE (NEGATIVE); PROTEIN URINE NEGATIVE (NEGATIVE); UROBILINOGEN,URINE 0.2 (0.2-1.0)
[2018-03-11 06:56] LABS: BLOOD, URINE TRACE (NEGATIVE)
[2018-03-11 07:00] VITALS: BP_SYST 136
[2018-03-11 07:02] LABS: BAND % (MANUAL) 10 % (0-6); EOSINOPHILS % (MANUAL) 3 % (0-7); LYMPHOCYTES % (MANUAL) 10 % (20-46); MONOCYTES % (MANUAL) 3 % (0-11)
[2018-03-11 07:03] LABS: BASOPHILS % (MANUAL) 0 % (0-2)
[2018-03-11 07:16] LABS: RBC,URINE 0-3 /HPF (0-3); WBC,URINE NONE SEEN /HPF (0-3)
[2018-03-11 07:17] LABS: BACTERIA,URINE RARE /HPF (None Seen)
[2018-03-11] MEDS ORDERED: PIPERACILLIN/TAZO 3.375 GM in NS 50 ML IV ONE (07:22)
[2018-03-11 08:20] VITALS: BP_SYST 123
[2018-03-11] MEDS ORDERED: LIDOCAINE 2%, 20 ML MDV ONE ×2 (11:17→11:21)
[2018-03-11 12:00] VITALS: BP_SYST 129
[2018-03-11] MEDS ORDERED: PIPERACILLIN/TAZO 3.375 GM in NS 50 ML IV SCH (12:00)
[2018-03-11 14:24] LABS: BF APPEARANCE UNSPUN HAZY (CLEAR); BODY FLUID SOURCE/ TYPE ASCITES; SOURCE/TYPE ,BODY FLUID PARACENTESIS
[2018-03-11 14:25] LABS: APPEARANCE,SPUN,BODY FLUID CLEAR (CLEAR); BODY FLUID COLOR YELLOW (LT YELLOW); BODY FLUID TOTAL VOLUME 1100 mL; MONOCYTES,BODY FLUID 19 %; NEUTROPHIL, BODY FLUID 81 %; RBC, BODY FLUID 131 /uL; WBC, BODY FLUID 785 /uL
[2018-03-11 16:00] VITALS: BP_SYST 132
[2018-03-11] MEDS ORDERED: GENTAMICIN 100 mg/50 mL NS 50 ML IV ONE (16:00)
[2018-03-11] MEDS ORDERED: LEVOFLOXACIN 250 MG/D5W 50 ML IV SCH (16:30)
[2018-03-11 19:10] VITALS: BP_SYST 101
[2018-03-11 20:28] LABS: BODY FLUID GLUCOSE 103 mg/dL; BODY FLUID TOTAL PROTEIN 0.4 g/dL
[2018-03-11] MEDS ORDERED: IBUPROFEN 600 MG TABLET PO PRN (21:30)
[2018-03-11] MEDS ORDERED: FAMOTIDINE 20 MG TABLET PO ONE (22:15)
[2018-03-12 00:10] VITALS: BP_SYST 105
[2018-03-12 06:57] LABS: EOSINOPHILS # (AUTO) 0.2 K/uL (0.0-0.4); EOSINOPHILS % (AUTO) 8.7 % (0.0-4.0); HEMATOCRIT 27.2 % (36-54); HEMOGLOBIN 9.1 g/dL (14.0-18.0); LYMPHOCYTES # (AUTO) 0.6 K/uL (1.0-5.5); LYMPHOCYTES % (AUTO) 23.9 % (20.5-51.5); MEAN CORPUSCULAR HEMOGLOBIN 34 pg (27-31); MEAN CORPUSCULAR HGB CONC 33 % (32-36); MEAN CORPUSCULAR VOLUME 103 fL (79.0-98.0); MONOCYTES # (AUTO) 0.3 K/uL (0.0-1.0); MONOCYTES % (AUTO) 13.3 % (1.7-9.3); NEUTROPHILS # (AUTO) 1.3 K/uL (1.8-7.7); NEUTROPHILS % (AUTO) 53.1 % (40.0-70.0); RED BLOOD CELL COUNT(AUTO) 2.66 MIL/uL (4.2-6.2); RED CELL DISTRIBUTION WIDTH 15.7 % (9.0-15.0)
[2018-03-12 07:06] LABS: ALBUMIN 1.8 g/dL (3.4-4.8); CALCIUM 7.7 mg/dL (8.4-11.0); CREATININE 1.38 mg/dL (0.55-1.30); POTASSIUM 3.5 mmol/L (3.5-5.1); TOTAL BILIRUBIN 2.5 mg/dL (0.0-1.0)
[2018-03-12 07:32] LABS: WHITE BLOOD COUNT (AUTO) 2.4 K/uL (4.8-10.8)
[2018-03-12 08:10] VITALS: BP_SYST 102
[2018-03-12] MEDS ORDERED: FAMOTIDINE 20 MG TABLET PO SCH (09:00)
[2018-03-12 10:12] LABS: PLATELET COUNT (AUTO) 50 K/uL (130-430)
[2018-03-12 12:00] VITALS: BP_SYST 106
[2018-03-12] MEDS ORDERED: LEVOFLOXACIN 250 MG TABLET PO ONE (14:30)
[2018-03-12 14:46] VITALS: BP_SYST 106
== END 2018-03-12 15:24 | disposition home or self-care (01) | DRG 441 ==
LOC: SED 04:40 → SMU 06:23 → STU 18:26
PROVIDERS: ADMIT Internal Medicine; ATTEND Internal Medicine
PROC: 0W9G3ZZ Drainage of Peritoneal Cavity, Percutaneous Approach (ICD-10-PCS; principal; 2018-03-12)
DX: K72.90 Hepatic failure, unspecified without coma (principal); K65.2 Spontaneous bacterial peritonitis; D61.818 Other pancytopenia; D68.9 Coagulation defect, unspecified; R18.8 Other ascites; K74.60 Unspecified cirrhosis of liver; K75.81 Nonalcoholic steatohepatitis (NASH)
CPT/HCPCS: 36415; 49083; 71045; 80053; 81000-TC; 82140-TC; 82947-TC; 83605; 83690-TC; 84157-TC; 85007; 85025; 85027; 85610-TC; 87040-TC; 87070-TC; 87081; 89051-TC; 89060-TC; 93005; 96361; 96374; 96375; 99285; J1580; J1956; J2001; J2270; J2543; J2765; J7030

== ENCOUNTER 2018-04-02 11:15 | Inpatient (IN) | payer BC ==
[~2018-04-02] VITALS: Ht 180.3 cm; Wt 74.8 kg
[2018-04-02 11:19] VITALS: BP_SYST 96
[2018-04-02] MEDS ORDERED: NACL 0.9% 1,000 ML IV ONE (11:26)
[2018-04-02 12:04] LABS: BILIRUBIN,URINE NEGATIVE (NEGATIVE); CLARITY/URINE CLEAR (CLEAR); COLOR,URINE YELLOW (YELLOW); GLUCOSE,URINE NEGATIVE (NEGATIVE); KETONES,URINE NEGATIVE (NEGATIVE); LEUKOCYTE ESTERASE ,URINE NEGATIVE (NEGATIVE); NITRITE, URINE NEGATIVE (NEGATIVE); PH,URINE 7.5 (5.0-8.0); PROTEIN URINE NEGATIVE (NEGATIVE); UROBILINOGEN,URINE 0.2 (0.2-1.0)
[2018-04-02 12:12] LABS: BLOOD, URINE TRACE (NEGATIVE)
[2018-04-02 12:17] LABS: BACTERIA,URINE RARE /HPF (None Seen); MUCUS,URINE 1+ /LPF (None Seen); RBC,URINE 0-3 /HPF (0-3); WBC,URINE 0-3 /HPF (0-3)
[2018-04-02 12:28] LABS: BARBITURATE, URINE NEGATIVE (NEG <=200); BENZODIAZEPINE, URINE NEGATIVE (NEG <=150); CANNABINOID, URINE NEGATIVE (NEG <=50); COCAINE, URINE NEGATIVE (NEG <=150); METHAMPHETAMINES SCREEN,URINE NEGATIVE (NEG <=500); OPIATE, URINE NEGATIVE (NEG <=100); PHENCYCLIDINE SCREEN,URINE NEGATIVE (NEG <=25); UR TRICYCLIC ANTIDEPRESSANTS NEGATIVE (NEG <=300); URINE AMPHETAMINE NEGATIVE (NEG <=500); URINE METHADONE NEGATIVE (NEG <=200); URINE OXYCODONE SCREEN NEGATIVE (NEG <=100); URINE PROPOXYPHENE SCREEN NEGATIVE (NEG <=300)
[2018-04-02 12:42] LABS: EOSINOPHILS # (AUTO) 0.3 K/uL (0.0-0.4); EOSINOPHILS % (AUTO) 15.7 % (0.0-4.0); HEMOGLOBIN 10.5 g/dL (14.0-18.0); LYMPHOCYTES # (AUTO) 0.4 K/uL (1.0-5.5); LYMPHOCYTES % (AUTO) 17.7 % (20.5-51.5); MEAN CORPUSCULAR HEMOGLOBIN 34 pg (27-31); MEAN CORPUSCULAR HGB CONC 34 % (32-36); MEAN CORPUSCULAR VOLUME 99 fL (79.0-98.0); MONOCYTES # (AUTO) 0.3 K/uL (0.0-1.0); NEUTROPHILS # (AUTO) 1.2 K/uL (1.8-7.7); NEUTROPHILS % (AUTO) 53.6 % (40.0-70.0); RED BLOOD CELL COUNT(AUTO) 3.12 MIL/uL (4.2-6.2); RED CELL DISTRIBUTION WIDTH 14.9 % (9.0-15.0); WHITE BLOOD COUNT (AUTO) 2.2 K/uL (4.8-10.8)
[2018-04-02 12:46] LABS: ANION GAP 11 (5-15); CALCIUM 8.8 mg/dL (8.4-11.0); CHLORIDE 103 mmol/L (98-107); CREATININE 1.38 mg/dL (0.55-1.30); GLUCOSE 129 mg/dL (70-99); POTASSIUM 4.1 mmol/L (3.5-5.1); SODIUM SERUM 136 mmol/L (136-145); UREA NITROGEN, BLOOD 18 mg/dL (8-21)
[2018-04-02 12:47] LABS: GFR AFRICAN AMERICAN 68 mL/min (>90)
[2018-04-02 12:48] LABS: PLATELET COUNT (AUTO) 49 K/uL (130-430)
[2018-04-02 12:50] LABS: INR 1.3 (0.80-1.20); PROTHROMBIN TIME 12.9 SECS (9.5-12.5)
[2018-04-02 12:51] LABS: ALANINE AMINOTRANSFERASE 46 U/L (12-78); ALBUMIN 3.5 g/dL (3.4-4.8); ALCOHOL, BLOOD < 3 mg/dL (<10); ASPARTATE AMINOTRANSFERASE 49 U/L (10-37); LIPASE 395 U/L (73-393); TOTAL BILIRUBIN 2.2 mg/dL (0.0-1.0)
[2018-04-02 12:56] LABS: ACETAMINOPHEN < 1 ug/mL (1-30)
[2018-04-02] MEDS ORDERED: LACTULOSE 20 GM/30 ML UDC PO ONE (13:15)
[2018-04-02 13:58] VITALS: BP_SYST 120
[2018-04-02] MEDS ORDERED: ONDANSETRON HCL 4 MG/2 ML VIAL IVP PRN (14:45)
[2018-04-02] MEDS ORDERED: MORPHINE 2 MG/ML INJ. SYRINGE IVP PRN (14:45)
[2018-04-02] MEDS ORDERED: LACTULOSE 20 GM/30 ML UDC PO SCH (14:45)
[2018-04-02] MEDS ORDERED: PHYTONADIONE 5 MG TABLET PO ONE (14:45)
[2018-04-02 14:58] VITALS: BP_SYST 106
[2018-04-02] MEDS ORDERED: RIFAXIMIN 550 MG TABLET PO ONE (15:30)
[2018-04-02] MEDS ORDERED: LEVOFLOXACIN 500 MG/D5W 100 ML IV ONE (15:30)
[2018-04-02] MEDS ORDERED: PHYTONADIONE PO ONE (16:15)
[2018-04-02] MEDS: cefTRIAXone 1 GM in D5W 50 ML IV SCH (16:53)
[2018-04-02 20:00] VITALS: BP_SYST 105
[2018-04-03 00:11] VITALS: BP_SYST 106
[2018-04-03] MEDS ORDERED: LACTULOSE 20 GM/30 ML UDC PO ONE (00:45)
[2018-04-03 07:03] LABS: INR 1.3 (0.80-1.20); PROTHROMBIN TIME 13.3 SECS (9.5-12.5)
[2018-04-03 07:41] LABS: HEMATOCRIT 30.4 % (36-54); HEMOGLOBIN 10.1 g/dL (14.0-18.0); MEAN CORPUSCULAR HEMOGLOBIN 34 pg (27-31); MEAN CORPUSCULAR HGB CONC 33 % (32-36); MEAN CORPUSCULAR VOLUME 101 fL (79.0-98.0); RED BLOOD CELL COUNT(AUTO) 3.02 MIL/uL (4.2-6.2); RED CELL DISTRIBUTION WIDTH 14.9 % (9.0-15.0)
[2018-04-03 08:00] VITALS: BP_SYST 108
[2018-04-03 08:12] LABS: PLATELET COUNT (AUTO) 42 K/uL (130-430)
[2018-04-03 08:16] LABS: ALBUMIN 3.2 g/dL (3.4-4.8); CALCIUM 8.7 mg/dL (8.4-11.0); CREATININE 1.27 mg/dL (0.55-1.30); PHOSPHORUS 4.3 mg/dL (2.7-4.5); TOTAL BILIRUBIN 1.7 mg/dL (0.0-1.0); URIC ACID 9.8 mg/dL (2.4-7.0)
[2018-04-03] MEDS ORDERED: LACTULOSE 20 GM/30 ML UDC PO SCH (09:00)
[2018-04-03] MEDS ORDERED: RIFAXIMIN 550 MG TABLET PO SCH (09:00)
[2018-04-03] MEDS ORDERED: ALLOPURINOL 100 MG TABLET (ZYLOPRIM) PO SCH (09:00)
[2018-04-03 09:15] LABS: ATYPICAL LYMPHOCYTES % 0 % (0-0); BAND % (MANUAL) 2 % (0-6); BASOPHILS % (MANUAL) 0 % (0-2); EOSINOPHILS % (MANUAL) 14 % (0-7); LYMPHOCYTES % (MANUAL) 21 % (20-46); MONOCYTES % (MANUAL) 13 % (0-11)
[2018-04-03 11:37] VITALS: BP_SYST 104
[2018-04-03] MEDS ORDERED: LEVOFLOXACIN 250 MG/D5W 50 ML IV SCH (14:00)
[2018-04-03] MEDS: cefTRIAXone 1 GM in D5W 50 ML IV SCH (14:07)
[2018-04-03 15:24] VITALS: BP_SYST 103
[2018-04-03 17:04] VITALS: BP_SYST 103
== END 2018-04-03 19:10 | disposition short-term general hospital (02) | DRG 441 ==
LOC: SED 11:15 → STU 13:27
PROVIDERS: ADMIT Internal Medicine; ATTEND Internal Medicine
DX: K72.00 Acute and subacute hepatic failure without coma (principal); K85.90 Acute pancreatitis without necrosis or infection, unspecified; K65.2 Spontaneous bacterial peritonitis; E44.0 Moderate protein-calorie malnutrition; D61.818 Other pancytopenia; D68.9 Coagulation defect, unspecified; I25.10 Atherosclerotic heart disease of native coronary artery without angina pectoris; K74.60 Unspecified cirrhosis of liver; K75.81 Nonalcoholic steatohepatitis (NASH); N18.9 Chronic kidney disease, unspecified; Z79.2 Long term (current) use of antibiotics; E79.0 Hyperuricemia without signs of inflammatory arthritis and tophaceous disease; Z79.899 Other long term (current) drug therapy; Z68.23 Body mass index [BMI] 23.0-23.9, adult; Z95.5 Presence of coronary angioplasty implant and graft
CPT/HCPCS: 36415; 70450-TC; 71045; 80053; 80307; 81000-TC; 82140-TC; 82550-TC; 83690-TC; 83735-TC; 84100-TC; 84484; 84550-TC; 85007; 85025; 85027; 85610-TC; 85730-TC; 87040-TC; 87081; 87086; 93005; 96360; 99285; G0480; G0481; G0482; J0696; J1956; J3430; J7060

== ENCOUNTER 2018-04-17 12:56 | Outpatient (CLI) | payer BC ==
[2018-04-17 13:49] LABS: ALBUMIN 3.6 g/dL (3.4-4.8); CALCIUM 9.3 mg/dL (8.4-11.0); CREATININE 1.42 mg/dL (0.55-1.30); TOTAL BILIRUBIN 2.7 mg/dL (0.0-1.0)
== END 2018-04-17 20:31 | disposition home or self-care (01) ==
LOC: SLB 12:56
PROVIDERS: ATTEND Internal Medicine
DX: K77 Liver disorders in diseases classified elsewhere (principal); Z79.899 Other long term (current) drug therapy
CPT/HCPCS: 36415; 80053; 82140-TC

== ENCOUNTER 2018-06-05 03:37 | Inpatient (IN) | payer BC ==
[2018-06-05] VITALS (7 sets, daily range): BP systolic 104–139
[~2018-06-05] VITALS: Ht 180.3 cm; Wt 77.1 kg
--- NOTE | 2018-06-05 03:52 | NUR ---
Patient to ER bed 8 to gown for evaluation. Side rails up. Report given to Cuco STYLES.
--- NOTE | 2018-06-05 04:00 | NUR ---
Pt was brought in by complaining of altered mental status. states about an hour ago she noticed that patient was responding inappropriately and was unable to use that remote controller. Pt appears to be responding slow. Pt denies N/V, fever, or pain. No other injuries/complaints per patient or noted.
--- NOTE | 2018-06-05 04:08 | NUR ---
SILVIO Acuña at bedside examining patient.
[2018-06-05 04:45] LABS: BILIRUBIN,URINE NEGATIVE (NEGATIVE); BLOOD, URINE NEGATIVE (NEGATIVE); CLARITY/URINE CLEAR (CLEAR); COLOR,URINE YELLOW (YELLOW); GLUCOSE,URINE NEGATIVE (NEGATIVE); KETONES,URINE NEGATIVE (NEGATIVE); LEUKOCYTE ESTERASE ,URINE NEGATIVE (NEGATIVE); NITRITE, URINE NEGATIVE (NEGATIVE); PH,URINE 6.5 (5.0-8.0); PROTEIN URINE NEGATIVE (NEGATIVE); UROBILINOGEN,URINE 0.2 (0.2-1.0)
[2018-06-05 04:53] LABS: CALCIUM 8.8 mg/dL (8.4-11.0); CREATININE 1.56 mg/dL (0.55-1.30); INR 1.1 (0.80-1.20); POTASSIUM 4.1 mmol/L (3.5-5.1); PROTHROMBIN TIME 11.6 SECS (9.5-12.5)
[2018-06-05 04:54] LABS: BASOPHILS % (AUTO) 1.1 % (0.0-2.0); EOSINOPHILS # (AUTO) 0.2 K/uL (0.0-0.4); EOSINOPHILS % (AUTO) 6.5 % (0.0-4.0); HEMATOCRIT 31.9 % (36-54); HEMOGLOBIN 10.6 g/dL (14.0-18.0); LYMPHOCYTES # (AUTO) 0.4 K/uL (1.0-5.5); LYMPHOCYTES % (AUTO) 17.5 % (20.5-51.5); MEAN CORPUSCULAR HEMOGLOBIN 32 pg (27-31); MEAN CORPUSCULAR HGB CONC 33 % (32-36); MEAN CORPUSCULAR VOLUME 95 fL (79.0-98.0); MONOCYTES # (AUTO) 0.3 K/uL (0.0-1.0); MONOCYTES % (AUTO) 11.9 % (1.7-9.3); NEUTROPHILS # (AUTO) 1.4 K/uL (1.8-7.7); RED BLOOD CELL COUNT(AUTO) 3.35 MIL/uL (4.2-6.2); RED CELL DISTRIBUTION WIDTH 16.8 % (9.0-15.0); WHITE BLOOD COUNT (AUTO) 2.3 K/uL (4.8-10.8)
[2018-06-05 04:59] LABS: ALBUMIN 3.3 g/dL (3.4-4.8); TOTAL BILIRUBIN 1.9 mg/dL (0.0-1.0)
[2018-06-05 05:07] LABS: PLATELET COUNT (AUTO) 39 K/uL (130-430)
[2018-06-05 05:22] LABS: BARBITURATE, URINE NEGATIVE (NEG <=200); BENZODIAZEPINE, URINE NEGATIVE (NEG <=150); CANNABINOID, URINE NEGATIVE (NEG <=50); COCAINE, URINE NEGATIVE (NEG <=150); METHAMPHETAMINES SCREEN,URINE NEGATIVE (NEG <=500); OPIATE, URINE NEGATIVE (NEG <=100); PHENCYCLIDINE SCREEN,URINE NEGATIVE (NEG <=25); UR TRICYCLIC ANTIDEPRESSANTS NEGATIVE (NEG <=300); URINE AMPHETAMINE NEGATIVE (NEG <=500); URINE METHADONE NEGATIVE (NEG <=200); URINE OXYCODONE SCREEN NEGATIVE (NEG <=100); URINE PROPOXYPHENE SCREEN NEGATIVE (NEG <=300)
--- NOTE | 2018-06-05 05:55 | NUR ---
ER Dr. Acuña at bedside explaining results to patient.
[2018-06-05] MEDS ORDERED: CLOP300T2 PO (05:57)
[2018-06-05] MEDS ORDERED: CIPR-211 PO (05:57)
[2018-06-05] MEDS ORDERED: LACT10SO6 PO (05:57)
[2018-06-05] MEDS ORDERED: PRO40 PO (05:57)
[2018-06-05] MEDS ORDERED: ASPI-1153 PO (05:57)
[2018-06-05] MEDS ORDERED: NACL 0.9% 1,000 ML IV ONE (06:00)
[2018-06-05] MEDS ORDERED: LACTULOSE 20 GM/30 ML UDC PO ONE (06:00)
--- NOTE | 2018-06-05 06:00 | NUR ---
ER Dr. Acuña explaining results to via phone.
[2018-06-05] MEDS ORDERED: LEVOFLOXACIN 500 MG/D5W 100 ML IV ONE (06:30)
[2018-06-05] MEDS ORDERED: D5LR 1,000 ML IV ONE (06:30)
[2018-06-05] MEDS ORDERED: cefTRIAXone 1 GM VIAL IV ONE (06:30)
--- NOTE | 2018-06-05 06:36 | NUR ---
Transfer to Telemetry via ACLS protocol. Licensed nurse present. IV present no signs or symptoms of infiltration.
--- NOTE | 2018-06-05 06:36 | NUR ---
Patient will be admitted to care of Dr. Wilkins. Admitted to Telemetry unit. Will go to room 112 B. Belongings list completed. Summary report printed. Report will be given at bedside.
--- NOTE | 2018-06-05 06:45 | NUR ---
ADMISSION NOTE Received patient from ER via gurney. Patient admitted with diagnosis of Hepatic encephalopathy. Patient is awake, alert, with episodes of confusion. Patient oriented to hospital room, call light, toileting, pain management and safety-teach back done. Patient informed that Moises will be his nurse and that their room number is 112b. Personal belongings checked and Belongings List documented. Call light within reach.
--- NOTE | 2018-06-05 07:45 | NUR ---
OPENING NOTES RECEIVED PT IN BED, PT IS AAOX3, DENIES PAIN, NO SOB, NO RESP DISTRESS. PT WAS ADMITTED FOR HEAPTIC ENCEPHALOPATHY. PT APPEARS SLEEPY BUT VERY AROUSABLE. PT IS ABLE TO AMBULATE TO THE RESTROOM WITH MIN. ASSIST. PT HAD 1 BM. IV ON R. AC INTACT AND PATENT. PT EDUCATED ON THE USE OF CALL LIGHT AND TV AND BED CONTROLS, ENCOURAGED TO CALL FOR ASSIST AND PAIN MEDS OR ANY CONCERNS. WILL CONT TO MONITOR.
--- NOTE | 2018-06-05 09:25 | NUR ---
INITIAL ROUNDS Received pt AAOx3, forgetful at times. No s/s resp distress, no c/o pain or discomfort. Pt placed on NS bolus as ordered from ER to RAC with no s/s infiltration to site. Plan of care for the day reviewed with pt-pt verbalized his understanding. Noted pt with ascites to abdomen. Pain management, disease process, skin and safety discussed-teach back done. Pt encouraged to call nursing for assist out of bed for safety. Pt given apple juice per request. Needs met, call light within reach.
--- NOTE | 2018-06-05 10:45 | NUR ---
[facility] DC Planning: Received a call from [facility] Liver Senior Technical Support Engineer/Laverne requesting update of Pt's admission to [facility]. Main C/B: [phone] [facility] received transfer of call from [facility] RN of [facility] Care Coord/Laverne per Laverne request. CM provided Laverne with verbal update of treatment during this admission; and faxed ED MD note, Med & Lab list, and, CT Head & CXR reports per request. Per Laverne, if Pt's condition deteriorates and a transfer to [facility] Center at [facility] is recommended, [facility] can be contacted to coordinate recommended transfer. If Center not available, CM can contact [facility] Transfer Center to coordinate. [facility] to arrange for appropriate ambulance.
[2018-06-05] MEDS ORDERED: cefTRIAXone 1 GM IVPB PREMIX 50 ML IV ONE (11:15)
--- NOTE | 2018-06-05 11:50 | NUR ---
ROUNDS Pt assisted to the bathroom, no s/s resp distress, no c/o pain or discomfort. Needs met, call light within reach.
--- NOTE | 2018-06-05 13:47 | NUR ---
[facility] DC Planning DCP completed with Pt at bedside. Pt states he wants to DC home today if ok with Dr. Wilkins. Pt also stated he has an appt at [facility] next week. Per Pt, he would prefer to not be transferred to [facility] or any hospital by ambulance; and, would like to have his rick/Teresa Cee take him by private car. RN/Malgorzata called to [facility]A to inform that [facility] Trans[facility] Taxation Inspector/Laverne called with request to transfer Pt to [facility]. [facility] attempted to call back to Laverne Ge: [phone] to discuss above plan of care; however, Laverne was not available; and, [facility]A left detailed message regarding above and that [facility]/Rebekah will contact her after eval by Dr. Wilkins today. NYA updated [facility]/Rebekah to f/up with Laverne; provided her contact info; and, to ascertain if an earlier appt might be needed due to patient's admit today in the event that Dr. Wilkins will recommend DC today. Otherwise, Rebekah and [facility] can discuss transfer arrangements.
--- NOTE | 2018-06-05 14:45 | NUR ---
ROUNDS Pt resting quietly in bed with no s/s resp distress, no c/o pain or discomfort. No changes. Call light within reach.
[2018-06-05] MEDS ORDERED: CLOPIDOGREL BISULFATE 75 MG TABLET PO SCH (16:00)
[2018-06-05] MEDS ORDERED: NON-FORMULARY MEDICATION (Lactulose 10 GM) PO SCH (16:00)
[2018-06-05] MEDS ORDERED: FUROSEMIDE 40 MG TABLET PO ONE (16:30)
[2018-06-05] MEDS ORDERED: LACTOBACILLUS RHAMNOSUS GG 1 CAP CAPSULE PO ONE (16:30)
[2018-06-05] MEDS ORDERED: PANTOPRAZOLE SODIUM 40 MG TAB PO ONE (16:45)
[2018-06-05] MEDS ORDERED: SPIRONOLACTONE 50 MG TABLET (ALDACTONE) PO ONE (16:45)
[2018-06-05] MEDS ORDERED: RIFAXIMIN 550 MG TABLET PO ONE (16:45)
--- NOTE | 2018-06-05 17:00 | NUR ---
BHAVANI RN FROM [facility] Spoke with Bhavani RN who stated she was waiting for case management to get back to her regarding pt transfer to [facility]-informed that the patient does have an order for transfer but the pillowcase sewer are gone for the day. Bhavani stated she will call case management in the morning-no transfer tonight.
--- NOTE | 2018-06-05 17:05 | NUR ---
ROUNDS Pt assisted to the bathroom with steady gait. Pt informed of MD order for US Paracentesis for tomorrow-pt stated he would think about it-he stated he would prefer to have it done at the [facility] if he is transferred there tomorrow. Pt stated he had a BM and voided. Needs met, call light within reach.
--- NOTE | 2018-06-05 19:00 | NUR ---
CLOSING NOTE Pt sitting up in bed with no s/s resp distress, no c/o pain or discomfort. Pt given cranberry juice and gram crackers per request. Needs met, call light within reach.
--- NOTE | 2018-06-05 20:00 | NUR ---
Initial PM Note Pt is fully awake, alert and oriented x4. Speech is clear and pt is able to make his needs known. No c/o pain or discomfort. VSS and pt is afebrile. No acute distress noted at this time. IV site in RFA is without any signs of infiltration. Fall and safety precautions are in place. Pt was instructed to call for assistance as needed and pt verbalized understanding. Call light is with pt and bed is in the lowest and locked positions. Will continue to monitor pt.
[2018-06-05] MEDS: LACTULOSE 20 GM/30 ML UDC PO SCH (21:36)
[2018-06-05] MEDS: LACTOBACILLUS RHAMNOSUS GG 1 CAP CAPSULE PO SCH (21:36)
[2018-06-05] MEDS: METOPROLOL TARTRATE 50 MG TABLET PO SCH (21:37)
--- NOTE | 2018-06-05 22:00 | NUR ---
Rounds Pt is resting quietly in bed. No c/o pain or discomfort. cardiac monitor technician is showing SR. Call light is with pt. Will continue to monitor pt.
--- NOTE | 2018-06-06 | NUR ---
Rounds Pt is sleeping without any distress noted. Saline lock is intact in RAC. Fall and safety precautions are in place. Will continue to monitor pt.
--- NOTE | 2018-06-06 02:00 | NUR ---
Rounds Pt is sleeping comfortably in bed. Fall and safety precautions are in place. Saline lock is intact in RAC. Will continue to monitor pt.
--- NOTE | 2018-06-06 04:00 | NUR ---
Rounds Pt is sleeping comfortably in bed. Fall and safety precautions are in place. Will continue to monitor pt.
--- NOTE | 2018-06-06 06:39 | NUR ---
Closing Note Pt is awake and resting comfortably in bed. Saline lock in RAC is without any signs of infiltration. Fall and safety precautions are in place. All pt's needs were attended to. No fall or injury noted this shift. Will endorse to day shift nurse.
[2018-06-06 07:00] LABS: BASOPHILS % (AUTO) 0.9 % (0.0-2.0); EOSINOPHILS # (AUTO) 0.1 K/uL (0.0-0.4); EOSINOPHILS % (AUTO) 6.8 % (0.0-4.0); HEMATOCRIT 27.6 % (36-54); HEMOGLOBIN 9.1 g/dL (14.0-18.0); LYMPHOCYTES # (AUTO) 0.4 K/uL (1.0-5.5); LYMPHOCYTES % (AUTO) 19.5 % (20.5-51.5); MEAN CORPUSCULAR HEMOGLOBIN 31 pg (27-31); MEAN CORPUSCULAR HGB CONC 33 % (32-36); MEAN CORPUSCULAR VOLUME 95 fL (79.0-98.0); MONOCYTES # (AUTO) 0.3 K/uL (0.0-1.0); MONOCYTES % (AUTO) 16.6 % (1.7-9.3); NEUTROPHILS # (AUTO) 1.3 K/uL (1.8-7.7); RED BLOOD CELL COUNT(AUTO) 2.89 MIL/uL (4.2-6.2); RED CELL DISTRIBUTION WIDTH 16.1 % (9.0-15.0); WHITE BLOOD COUNT (AUTO) 2.1 K/uL (4.8-10.8)
[2018-06-06 07:03] LABS: ALBUMIN 2.6 g/dL (3.4-4.8); CALCIUM 8.5 mg/dL (8.4-11.0); CREATININE 1.34 mg/dL (0.55-1.30); POTASSIUM 3.3 mmol/L (3.5-5.1); TOTAL BILIRUBIN 1.8 mg/dL (0.0-1.0)
--- NOTE | 2018-06-06 07:38 | NUR ---
Opening Note: Patient is laying in bed resting. Patient denies pain and discomfort. Breathing is even and unlabored with no distress noted. IV patent and intact. Safety precautions in place; bed in lowest position, wheels locked, side rails x3, bed alarm activated and call light within reach. Will continue to monitor.
[2018-06-06 07:46] LABS: PLATELET COUNT (AUTO) 36 K/uL (130-430)
[2018-06-06 08:51] LABS: NEUTROPHILS % (AUTO) 56.2 % (40.0-70.0)
[2018-06-06] MEDS ORDERED: FUROSEMIDE 40 MG TABLET PO SCH (09:00)
[2018-06-06] MEDS ORDERED: PANTOPRAZOLE SODIUM 40 MG TAB PO SCH (09:00)
[2018-06-06] MEDS ORDERED: cefTRIAXone 1 GM in D5W 50 ML IV SCH (09:00)
[2018-06-06] MEDS ORDERED: SPIRONOLACTONE 50 MG TABLET (ALDACTONE) PO SCH (09:00)
[2018-06-06] MEDS: METOPROLOL TARTRATE 50 MG TABLET PO SCH (09:00)
[2018-06-06] MEDS ORDERED: ASPIRIN 81 MG TABLET(ECOTRIN) PO SCH (09:00)
[2018-06-06] MEDS ORDERED: RIFAXIMIN 550 MG TABLET PO SCH (09:00)
[2018-06-06 09:01] VITALS: BP_SYST 122
[2018-06-06] MEDS: LACTULOSE 20 GM/30 ML UDC PO SCH (09:03)
[2018-06-06] MEDS: LACTOBACILLUS RHAMNOSUS GG 1 CAP CAPSULE PO SCH (09:06)
[2018-06-06] MEDS ORDERED: LEVOFLOXACIN 500 MG/D5W 100 ML IV SCH (10:00)
--- NOTE | 2018-06-06 10:09 | NUR ---
Rounding: Patient laying in bed resting. IV Levaquin running per MD order. No signs of infiltration. Will continue to monitor.
--- NOTE | 2018-06-06 11:30 | NUR ---
DC Planning: late entry re dcp pt to home and to f/u with current appointment at [facility] tomorrow. Per pt's. request, NYA coordinated with Laverne, home care specialist at [facility] that the pt. wants to be discharged home today and to go to [facility] for endoscopy appointment tomorrow. Dr. Wilkins, STEPHANI Albert made aware. Per Bety, Dr. Wilkins will discharge the pt. this afternoon, and per Laverne , she confirmed speaking with the pt. about the POC at [facility] and f/u care. NYA concurred with the pt. and agreed with dc home today.
[2018-06-06 12:00] VITALS: BP_SYST 125
[2018-06-06] MEDS ORDERED: POTASSIUM CHLORIDE 20 MEQ TAB.PRT.SR PO ONE (12:15)
[2018-06-06] MEDS ORDERED: CLOPIDOGREL BISULFATE 75 MG TABLET PO ONE (12:30)
--- NOTE | 2018-06-06 12:33 | NUR ---
MD Rounds: Dr. Wilkins at bedside. Dr. Wilkins discussed with patient discharge plan and medications. Dr. Wilkins informed patient to follow up with PCP regarding Plavix continuation due to low platelet count. Patient to follow up tomorrow at [facility] for scheduled EGD. Patient verbalized understanding. Patient to follow up with Dr. Wilkins in the office next month.
[2018-06-06 13:04] VITALS: BP_SYST 99
[2018-06-06] MEDS ORDERED: LEVO250T2 PO (13:28)
--- NOTE | 2018-06-06 14:10 | NUR ---
Rounds: Patient in bed resting. Patient ready to go home. Discharge packet and instructions given. Awaiting ride.
--- NOTE | 2018-06-06 14:35 | NUR ---
D/C Patient Patient given medication reconciliation form and D/C instructions. Exit Care provided. Patient verbalized understanding. MD discussed with patient the results and treatment provided. Ambulatory with steady gait for discharge to home. Patient in stable condition, ID band removed. IV catheter removed, intact and dressing applied, no active bleeding. Rx of meds given. Patient educated on pain management. All belongings sent with patient.
--- NOTE | 2018-06-06 15:01 | NUR ---
Nutrition Note Pt was seen and assessed by RD for initial assessment visit as per nutrition care screening policy/procedure. Pt was recently D/C home -- initial assessment documentation not entered. RD provided ample nutrition education as per pt request. Please refer to interdisciplinary teaching record for details.
== END 2018-06-06 14:35 | disposition home or self-care (01) | DRG 441 ==
LOC: SED 03:37 → STU 06:19
PROVIDERS: ADMIT Internal Medicine; ATTEND Internal Medicine
DX: K72.90 Hepatic failure, unspecified without coma (principal); K85.90 Acute pancreatitis without necrosis or infection, unspecified; K65.8 Other peritonitis; N17.9 Acute kidney failure, unspecified; D61.818 Other pancytopenia; E44.1 Mild protein-calorie malnutrition; M10.9 Gout, unspecified; K74.60 Unspecified cirrhosis of liver; E87.6 Hypokalemia; Z53.20 Procedure and treatment not carried out because of patient's decision for unspecified reasons; K75.81 Nonalcoholic steatohepatitis (NASH); I25.10 Atherosclerotic heart disease of native coronary artery without angina pectoris; Z79.82 Long term (current) use of aspirin; Z79.899 Other long term (current) drug therapy; Z79.02 Long term (current) use of antithrombotics/antiplatelets; Z95.5 Presence of coronary angioplasty implant and graft; Z76.82 Awaiting organ transplant status; Z68.23 Body mass index [BMI] 23.0-23.9, adult
CPT/HCPCS: 36415; 80053; 80307; 81003; 82140-TC; 83605; 83690-TC; 83735-TC; 85025; 85610-TC; 85730-TC; 87040-TC; 96360; 99285; G0482; J0696; J1956; J7030; J7060; J7120

== ENCOUNTER 2018-10-11 15:13 | Outpatient (CLI) | payer BC ==
[~2018-10-11 15:13] MED LIST changes: -ALLO100T PO; +ASPI-1153 PO; +CLOP300T2 PO; +LACT10SO6 PO; -LACT10SO66 PO; +LEVO250T2 PO; -PANT20TA2 PO; +PRO40 PO
== END 2018-10-11 19:11 | disposition home or self-care (01) ==
LOC: SRD 15:13
PROVIDERS: ATTEND Internal Medicine
DX: M19.072 Primary osteoarthritis, left ankle and foot (principal); M79.89 Other specified soft tissue disorders

== ENCOUNTER 2019-02-07 02:58 | Inpatient (IN) | payer BC ==
[~2019-02-07] VITALS: Ht 180.3 cm; Wt 79.4 kg
[2019-02-07 02:58] VITALS: BP_SYST 158
--- NOTE | 2019-02-07 02:58 | NUR ---
Patient to ER bed 01 to gown for evaluation. Side rails up.
--- NOTE | 2019-02-07 03:00 | NUR ---
Patient AOx4, ambulatory, presents to ER with complaint of nonradiating chest pain this AM. Patient was resting when pain began. Patient states hx of cirrhosis, CAD, s/p stent, and Hep C. at bedside no other symptoms or complaints.
--- NOTE | 2019-02-07 03:40 | NUR ---
ER MD Armstrong at bedside for medical evaluation.
[2019-02-07] MEDS ORDERED: NITROGLYCERIN 0.4 MG TAB.SUBL SL ONE (03:45)
[2019-02-07] MEDS ORDERED: ASPIRIN 325 MG TABLET PO ONE (03:45)
[2019-02-07 04:05] LABS: EOSINOPHILS # (AUTO) 0.1 K/uL (0.0-0.4); HEMATOCRIT 35.2 % (36-54); MONOCYTES # (AUTO) 0.3 K/uL (0.0-1.0); RED BLOOD CELL COUNT(AUTO) 4.44 MIL/uL (4.2-6.2)
[2019-02-07 04:10] LABS: BASOPHILS # (AUTO) 0.1 K/uL (0.0-0.2); BASOPHILS % (AUTO) 3.3 % (0.0-2.0); EOSINOPHILS % (AUTO) 1.8 % (0.0-4.0); HEMOGLOBIN 11.1 g/dL (14.0-18.0); LYMPHOCYTES # (AUTO) 0.3 K/uL (1.0-5.5); LYMPHOCYTES % (AUTO) 9.4 % (20.5-51.5); MEAN CORPUSCULAR HEMOGLOBIN 25 pg (27-31); MEAN CORPUSCULAR HGB CONC 32 % (32-36); MEAN CORPUSCULAR VOLUME 79 fL (79.0-98.0); MONOCYTES % (AUTO) 8.5 % (1.7-9.3); NEUTROPHILS # (AUTO) 2.7 K/uL (1.8-7.7); RED CELL DISTRIBUTION WIDTH 26.8 % (9.0-15.0); WHITE BLOOD COUNT (AUTO) 3.5 K/uL (4.8-10.8)
[2019-02-07 04:13] LABS: PLATELET COUNT (AUTO) 37 K/uL (130-430)
[2019-02-07 04:19] LABS: INR 1.1 (0.80-1.20)
[2019-02-07 04:23] LABS: ALBUMIN 3.5 g/dL (3.4-4.8); CALCIUM 8.4 mg/dL (8.4-11.0); CREATININE 1.24 mg/dL (0.55-1.30); POTASSIUM 3.2 mmol/L (3.5-5.1); TOTAL BILIRUBIN 1.9 mg/dL (0.0-1.0)
[2019-02-07 04:49] LABS: BILIRUBIN,URINE NEGATIVE (NEGATIVE); BLOOD, URINE 1+ (NEGATIVE); CLARITY/URINE CLEAR (CLEAR); COLOR,URINE YELLOW (YELLOW); GLUCOSE,URINE NEGATIVE (NEGATIVE); KETONES,URINE TRACE (NEGATIVE); LEUKOCYTE ESTERASE ,URINE NEGATIVE (NEGATIVE); NITRITE, URINE NEGATIVE (NEGATIVE); PROTEIN URINE TRACE (NEGATIVE); UROBILINOGEN,URINE 0.2 (0.2-1.0)
[2019-02-07 04:54] LABS: BACTERIA,URINE FEW /HPF (None Seen); WBC,URINE 0-3 /HPF (0-3)
[2019-02-07] MEDS ORDERED: TRAM50TA2 PO (05:52)
[2019-02-07] MEDS ORDERED: LOVI120 SQ (05:52)
--- NOTE | 2019-02-07 05:53 | NUR ---
Medication reconciliation completed with information provided by patient. Any prior medication reconciliation on file was reviewed and corrected.
--- NOTE | 2019-02-07 05:55 | NUR ---
# 22 gauge angiocath placed to LFA. Use of asceptic technique. Opsite placed over site. Blood return noted. Flushed with 10 cc of normal saline. No evidence of infiltration noted. Patient tolerated well.
--- NOTE | 2019-02-07 07:10 | NUR ---
report from Ester STYLES
--- NOTE | 2019-02-07 08:00 | NUR ---
update given to pt re: admission
--- NOTE | 2019-02-07 09:00 | NUR ---
Patient will be admitted to care of Dr. Wilkins. Admitted to unit. Will go to room 117B. Belongings list completed. Summary report printed. Report given at bedside Enma STYLES. Transfer to Tele via ACLS protocol. Licensed nurse present. IV present no signs or symptoms of infiltration.
--- NOTE | 2019-02-07 09:06 | NUR ---
ADMISSION NOTE Received patient from ER via robb, received report from GAYATHRI STYLES. Patient admitted with diagnosis of CHEST PAIN . Patient oriented to hospital routine, call light, toileting and safety-patient verbalized understanding.
[2019-02-07 09:14] VITALS: BP_SYST 154
--- NOTE | 2019-02-07 09:30 | NUR ---
ROUNDING NOTE RECEIVED PATIENT FROM ED. PATIENT IS A&OX4. LAYING IN BED COMFORTABLY. HEART MONITOR PLACED. EDUCATED ON PLAN OF CARE, AND CALL LIGHT; WITHIN REACH. ORIENTED TO UNIT, BED IN LOWEST POSITION. WILL CONTINUE TO MONITOR.
--- NOTE | 2019-02-07 11:25 | NUR ---
Echo being performed at bedside, at this time, patient tolerating well. Addendum: 02/07/19 at 1203 by Demario Marie RN Preliminary EF is 66%
--- NOTE | 2019-02-07 11:59 | NUR ---
RN rounds patient resting in bed, eyes closed, breathing is even and unlabored, no signs of distress, continuing to monitor, bed in lowest position, two side rails up, call light within reach, fall and aspiration precautions in place.
[2019-02-07 12:15] VITALS: BP_SYST 121
[2019-02-07] MEDS ORDERED: POTASSIUM CHLORIDE 20 MEQ TAB.PRT.SR PO ONE (12:30)
[2019-02-07] MEDS ORDERED: traMADol HCL HCL 50 MG TABLET (ULTRAM) PO SCH (12:30)
--- NOTE | 2019-02-07 13:10 | NUR ---
DR RAMSAY ROUNDS ASSESSED PATIENT WILL FOLLOW UP WITH ANY NEW ORDERS.
[2019-02-07] MEDS ORDERED: MAG-AL HYDROX/SIMETH 30 ML UDC PO ONE (14:00)
[2019-02-07] MEDS ORDERED: PANTOPRAZOLE SODIUM 40 MG TAB PO ONE (14:00)
[2019-02-07] MEDS ORDERED: MAG-AL HYDROX/SIMETH 30 ML UDC PO PRN (14:00)
--- NOTE | 2019-02-07 14:33 | NUR ---
CONSULT REASON FOR CONSULT: EPIGASTRIC PAIN PERSON I SPOKE WITH: LUCIANO CONSULTING PHYSICIAN: DR. CLARK POLITICAL RESEARCH SCIENTIST PHONE NUMBER: [phone] ORDERING PHYSICIAN: DR. RAMSAY
[2019-02-07] MEDS: LACTULOSE 20 GM/30 ML UDC PO SCH ×2 (14:46→21:30)
--- NOTE | 2019-02-07 14:55 | NUR ---
MED NOTE ADMINISTERED MEDICATIONS TO PATIENT. PATIENT TOLERATED WELL. EDUCATED PATIENT ON MEDICATION AND UPDATED MEDICATION SIDE EFFECT SHEET. PATIENT VERBALIZED UNDERSTANDING. WILL CONTINUE TO MONITOR.
--- NOTE | 2019-02-07 14:59 | NUR ---
CONSULT REASON FOR CONSULT: CHEST PAIN PERSON I SPOKE WITH: SELAM CONSULTING PHYSICIAN: DR. DOYLE PETROLEUM ENGINEERING PROFESSOR PHONE NUMBER: [phone] ORDERING PHYSICIAN: DR. RAMSAY
--- NOTE | 2019-02-07 15:30 | NUR ---
MED NOTE ADMINISTERED MEDICATIONS TO PATIENT. PATIENT TOLERATED WELL. PATIENT TEACHING ON MEDICATION INDICATIONS, SIDE EFFECTS, AND FUNCTION. PATIENT VERBALIZED UNDERSTANDING. WILL CONTINUE TO MONITOR.
[2019-02-07 16:00] VITALS: BP_SYST 147
--- NOTE | 2019-02-07 18:44 | NUR ---
CLOSING NOTE PATIENT RESTING COMFORTABLY IN BED. ALL NEEDS MET. PATIENT DOES NOT APPEAR TO BE IN ANY DISTRESS OR PAIN. BED PLACED IN LOWEST POSITION. SALINE LOCK IV ON LEFT FOREARM PATENT WITH NO SWELLING, REDNESS, OR TENDERNESS. GAVE PATIENT OPPORTUNITY TO ASK ANY FINAL QUESTIONS OR CONCERNS. PATIENT VERBALIZED UNDERSTANDING OF PLAN OF CARE. WILL ENDORSE REPORT TO NIGHT NURSE.
--- NOTE | 2019-02-07 19:30 | NUR ---
ROUNDS PATIENT IN BED, NOT IN DISTRESS, VITALS STABLE, DENIES ANY PAIN AND DISCOMFORT AT THIS TIME. ASSESSMENT DONE AND DOCUMENTED. SEE FLOWSHEET. NEEDS ATTENDED TO. SAFETY AND FALL PRECAUTION MEASURES IN PLACED. BED IN LOW AND LOCKED POSITION. CALL LIGHT PLACED IN LOW AND LOCKED POSITION. CALL LIGHT PLACED WITHIN REACH.
[2019-02-07 20:00] VITALS: BP_SYST 122
--- NOTE | 2019-02-07 21:13 | NUR ---
MEDICATION DUE MEDICATIONS GIVEN SCHEDULED, TOLERATED WELL. WILL CONTINUE TO MONITOR.
[2019-02-07] MEDS: RIFAXIMIN 550 MG TABLET PO SCH (21:31)
[2019-02-07] MEDS: PANTOPRAZOLE SODIUM 40 MG TAB PO SCH (21:31)
[2019-02-08] VITALS: BP_SYST 118
--- NOTE | 2019-02-08 00:10 | NUR ---
PATIENT RESTING: Patient resting quietly. No acute distress noted. Vital signs within normal range.
--- NOTE | 2019-02-08 02:13 | NUR ---
ROUNDS PATIENT ASLEEP, NO SOB NOR PAIN AND DISCOMFORT NOTED, WILL CONTINUE TO MONITOR.
--- NOTE | 2019-02-08 04:14 | NUR ---
ROUNDS PATIENT ASLEEP, RESPIRATIONS EVEN AND UNLABORED, WILL CONTINUE TO MONITOR.
[2019-02-08 05:51] LABS: ALANINE AMINOTRANSFERASE 65 U/L (12-78); ALBUMIN 3.1 g/dL (3.4-4.8); ANION GAP 9 (5-15); ASPARTATE AMINOTRANSFERASE 29 U/L (10-37); CALCIUM 8.1 mg/dL (8.4-11.0); CHLORIDE 102 mmol/L (98-107); CREATININE 1.09 mg/dL (0.55-1.30); GLUCOSE 80 mg/dL (70-99); POTASSIUM 3.9 mmol/L (3.5-5.1); SODIUM SERUM 136 mmol/L (136-145); TOTAL BILIRUBIN 0.9 mg/dL (0.0-1.0); UREA NITROGEN, BLOOD 10 mg/dL (8-21)
[2019-02-08 05:52] LABS: GFR AFRICAN AMERICAN 89 mL/min (>90)
--- NOTE | 2019-02-08 06:11 | NUR ---
CLOSING NOTES PATIENT AWAKE, VITALS STABLE, DENIES ANY PAIN AT THIS TIME. ALL NEEDS ATTENDED TO. SAFETY MEASURES MAINTAINED. BED IN LOW AND LOCKED POSITION. CALL LIGHT PLACED WITHIN REACH.
[2019-02-08 06:21] LABS: HEMATOCRIT 34.6 % (36-54); HEMOGLOBIN 10.6 g/dL (14.0-18.0); MEAN CORPUSCULAR HEMOGLOBIN 25 pg (27-31); MEAN CORPUSCULAR HGB CONC 31 % (32-36); MEAN CORPUSCULAR VOLUME 81 fL (79.0-98.0); RED BLOOD CELL COUNT(AUTO) 4.28 MIL/uL (4.2-6.2); RED CELL DISTRIBUTION WIDTH 27.2 % (9.0-15.0)
[2019-02-08 08:02] VITALS: BP_SYST 121
--- NOTE | 2019-02-08 08:03 | NUR ---
AM note patient resting in bed, a/ox4, denies pain, assessment complete, educated on plan of care and call light system and to call for any assistance, he verbalized understanding, IV line is patent and infusing well, aspiration and fall precautions in place, bed in lowest position, two side rails up, call light within reach, fall and aspiration precautions in place.
[2019-02-08 08:06] LABS: PLATELET COUNT (AUTO) 35 K/uL (130-430); WHITE BLOOD COUNT (AUTO) 1.9 K/uL (4.8-10.8)
--- NOTE | 2019-02-08 08:18 | NUR ---
Dr. Hinson and Dr. Rojas rounds speaking with patient at bedside at this time.
[2019-02-08] MEDS ORDERED: SPIRONOLACTONE 50 MG TABLET (ALDACTONE) PO SCH (09:00)
[2019-02-08] MEDS ORDERED: FUROSEMIDE 40 MG TABLET PO SCH (09:00)
[2019-02-08] MEDS: LACTULOSE 20 GM/30 ML UDC PO SCH (09:13)
[2019-02-08] MEDS: RIFAXIMIN 550 MG TABLET PO SCH (09:13)
[2019-02-08] MEDS: PANTOPRAZOLE SODIUM 40 MG TAB PO SCH (09:13)
--- NOTE | 2019-02-08 09:19 | NUR ---
Medication patient resting in bed, awake, ambulating in room, steady gait, educated on medications uses and potential side effects, he verbalized understanding and tolerated well, awaiting discharge, will follow up, bed in lowest position, two side rails up, call light within reach, fall and aspiration precautions in place.
--- NOTE | 2019-02-08 10:08 | NUR ---
ATTENDING MD DR RAMSAY WAS PAGED, RE: CRITICAL LABS, & TO INFORM THAT CARDIO (DR DOYLE) & GI (DR JUNE) CLEARED HIM FOR DISCHARGE. SPOKE TO TERENCE
[2019-02-08 10:16] LABS: BASOPHILS % (MANUAL) 0 % (0-2); EOSINOPHILS % (MANUAL) 3 % (0-7); LYMPHOCYTES % (MANUAL) 27 % (20-46); MONOCYTES % (MANUAL) 2 % (0-11)
--- NOTE | 2019-02-08 10:53 | NUR ---
Dr. Wilkins rounds assessed patient, and informed him labs and bleeding precautions and which medications to stop, patient to follow up with CBC draw on Tuesday02/12/19, patient verbalized understanding. Dr. Wilkins spoke 's Office at [facility], labs to be faxed to them, will follow up. Addendum: 02/08/19 at 1237 by Demario Marie RN Faxed labs to [facility] (Laverne) per patient and Dr. Wilkins request [facility] phone number [phone] fax number [phone]
[2019-02-08 11:14] VITALS: BP_SYST 121
[2019-02-08 11:25] VITALS: BP_SYST 133
--- NOTE | 2019-02-08 12:16 | NUR ---
D/C Patient Patient given medication reconciliation form and D/C instructions. Exit Care provided. Patient verbalized understanding. MD discussed with patient the results and treatment provided. Ambulatory with steady gait for discharge to home. Patient in stable condition, ID band removed. IV catheter removed, intact and dressing applied, no active bleeding. Patient educated on pain management. All belongings sent with patient. Patient instructed to stop Aspirin and Lovenox, educated on bleeding precautions as well. Patient instructed to follow up with lab draw on Tuesday02/12/19, and see Dr. Wilkins next week, patient verbalized understanding.
== END 2019-02-08 12:15 | disposition home or self-care (01) | DRG 392 ==
LOC: SED 02:58 → STU 08:17
PROVIDERS: ADMIT Internal Medicine; ATTEND Internal Medicine
DX: K29.70 Gastritis, unspecified, without bleeding (principal); E87.1 Hypo-osmolality and hyponatremia; D61.818 Other pancytopenia; E44.1 Mild protein-calorie malnutrition; K74.60 Unspecified cirrhosis of liver; I25.10 Atherosclerotic heart disease of native coronary artery without angina pectoris; E87.6 Hypokalemia; K75.81 Nonalcoholic steatohepatitis (NASH); R07.89 Other chest pain; E79.0 Hyperuricemia without signs of inflammatory arthritis and tophaceous disease; Z95.5 Presence of coronary angioplasty implant and graft; Z79.82 Long term (current) use of aspirin; Z79.899 Other long term (current) drug therapy; Z86.718 Personal history of other venous thrombosis and embolism; Z79.01 Long term (current) use of anticoagulants; Z68.24 Body mass index [BMI] 24.0-24.9, adult
CPT/HCPCS: 36415; 71045; 80053; 81000-TC; 82140-TC; 82550-TC; 83735-TC; 83880; 84484; 85007; 85025; 85027; 85379; 85610-TC; 93005; 93306; 99285; G0378

== ENCOUNTER 2020-02-22 09:34 | Inpatient (IN) | payer BC ==
[~2020-02-22] VITALS: Ht 180.3 cm; Wt 81.6 kg
[~2020-02-22 09:34] MED LIST changes: -ASPI-1153 PO; -CLOP300T2 PO; -LEVO250T2 PO; +TRAM50TA2 PO
[2020-02-22 09:40] VITALS: BP_SYST 106
--- NOTE | 2020-02-22 09:45 | NUR ---
Patient triaged and placed in waiting room. VSS and patient appears in no acute distress at this time. Accompanied by FAMILY, awaiting available bed, and MD notified of need for MSE.
[2020-02-22 11:01] LABS: BASOPHILS % (AUTO) 0.6 % (0.0-2.0); CALCIUM 7.9 mg/dL (8.4-11.0); CREATININE 1.23 mg/dL (0.55-1.30); EOSINOPHILS # (AUTO) 0.1 K/uL (0.0-0.4); EOSINOPHILS % (AUTO) 1.5 % (0.0-4.0); HEMATOCRIT 39.8 % (36-54); LYMPHOCYTES # (AUTO) 0.3 K/uL (1.0-5.5); LYMPHOCYTES % (AUTO) 7.5 % (20.5-51.5); MEAN CORPUSCULAR HEMOGLOBIN 29 pg (27-31); MEAN CORPUSCULAR HGB CONC 33 % (32-36); MEAN CORPUSCULAR VOLUME 87 fL (79.0-98.0); MONOCYTES # (AUTO) 0.3 K/uL (0.0-1.0); MONOCYTES % (AUTO) 8.1 % (1.7-9.3); NEUTROPHILS # (AUTO) 3.2 K/uL (1.8-7.7); POTASSIUM 3.5 mmol/L (3.5-5.1); RED BLOOD CELL COUNT(AUTO) 4.57 MIL/uL (4.2-6.2); RED CELL DISTRIBUTION WIDTH 16.1 % (9.0-15.0); WHITE BLOOD COUNT (AUTO) 3.9 K/uL (4.8-10.8)
[2020-02-22 11:05] LABS: ALBUMIN 3.5 g/dL (3.4-4.8); INR 1.3 (0.80-1.20); PROTHROMBIN TIME 12.9 SECS (9.5-12.5); TOTAL BILIRUBIN 1.9 mg/dL (0.0-1.0)
[2020-02-22 11:31] LABS: PLATELET COUNT (AUTO) 35 K/uL (130-430)
[2020-02-22 11:33] LABS: NEUTROPHILS % (AUTO) 82.3 % (40.0-70.0)
--- NOTE | 2020-02-22 13:15 | NUR ---
Patient to ER bed H1 to gown for evaluation. Side rails up.
--- NOTE | 2020-02-22 13:30 | NUR ---
Pt brought by self, A&Ox4, ambulatory, pt presents to ER with abdominal pain and bloating of the stomach , Pt states he has Hx of liver cirrhosis, skin pink and warm, cap refill <3, respirations even and unlabored.
--- NOTE | 2020-02-22 13:40 | NUR ---
Dr Galeano at bedside examining patient
[2020-02-22] MEDS ORDERED: PIPERACILLIN/TAZO 3.38 GM in D5W 50 ML IV ONE (14:30)
[2020-02-22] MEDS ORDERED: VANCOMYCIN HCL 1,000 MG in D5W 250 ML IV ONE (14:30)
[2020-02-22] MEDS ORDERED: PIPERACILLIN/TAZOBACTAM 3.375 GM/VIAL (ZOSYN) IV ONE (14:55)
[2020-02-22] MEDS ORDERED: VANCOMYCIN HCL 1000 MG/VIAL IV ONE (15:10)
--- NOTE | 2020-02-22 15:44 | NUR ---
Received a phone call from Rocky from [facility], number [phone] since patient is candidate for liver transplant,per Rocky nurse to call them if any questions regarding patient, pt's doctor Syd Estrada.
[2020-02-22] MEDS ORDERED: CIPR-211 PO (15:55)
[2020-02-22] MEDS ORDERED: MILK200C5 PO (15:55)
[2020-02-22] MEDS ORDERED: LOVI120 SQ (15:55)
[2020-02-22] MEDS ORDERED: PRED5TAB PO (15:55)
[2020-02-22] MEDS ORDERED: FER300L PO (15:55)
[2020-02-22] MEDS ORDERED: ZINC500P17 PO (15:55)
[2020-02-22] MEDS ORDERED: ASA81 PO (15:55)
[2020-02-22] MEDS ORDERED: tramadol PO (15:55)
--- NOTE | 2020-02-22 16:02 | NUR ---
Pt A&Ox4, VSS, respirations even and unlabored
--- NOTE | 2020-02-22 19:03 | NUR ---
Pt A&Ox4, respirations even and unlabored, cap refill <3.
[2020-02-22] MEDS ORDERED: traMADol HCL HCL 50 MG TABLET (ULTRAM) PO PRN (19:30)
--- NOTE | 2020-02-22 19:46 | NUR ---
Dr Wilkins at bedside examining patient
[2020-02-22] MEDS: RIFAXIMIN 550 MG TABLET PO SCH (21:00)
--- NOTE | 2020-02-22 21:32 | NUR ---
Pt moved to bed H1
[2020-02-22] MEDS: LACTULOSE 20 GM/30 ML UDC PO SCH (21:47)
[2020-02-22] MEDS: PANTOPRAZOLE SODIUM 40 MG TAB PO SCH (21:47)
[2020-02-22 21:49] LABS: BILIRUBIN,URINE NEGATIVE (NEGATIVE); CLARITY/URINE CLEAR (CLEAR); GLUCOSE,URINE NEGATIVE (NEGATIVE); KETONES,URINE TRACE (NEGATIVE); LEUKOCYTE ESTERASE ,URINE NEGATIVE (NEGATIVE); NITRITE, URINE NEGATIVE (NEGATIVE); PROTEIN URINE TRACE (NEGATIVE)
[2020-02-22] MEDS: traMADol HCL HCL 50 MG TABLET (ULTRAM) PO SCH (21:49)
[2020-02-22] MEDS: NORMAL SALINE 5 ML DISP.SYRIN IVF SCH (21:50)
--- NOTE | 2020-02-22 21:50 | NUR ---
Pt medicated as ordered, Xifaxan medication not available at this time,powerhouse tender notified.
[2020-02-22 21:57] LABS: BLOOD, URINE TRACE (NEGATIVE); COLOR,URINE AMBER (YELLOW)
[2020-02-22 21:59] LABS: BACTERIA,URINE None Seen /HPF (None Seen); RBC,URINE 0-3 /HPF (0-3); WBC,URINE NONE SEEN /HPF (0-3)
[2020-02-22 22:00] LABS: MUCUS,URINE None Seen /LPF (None Seen)
--- NOTE | 2020-02-22 22:18 | NUR ---
Per supervisor wool shearing Xifaxan 550 mg PO not available at this time, patient notified.
--- NOTE | 2020-02-22 22:57 | NUR ---
Pt on stable condition, report given to Lawrence STYLES
--- NOTE | 2020-02-22 23:45 | NUR ---
pt in [facility], recieved report. VSS denies pain
[2020-02-23] MEDS: PIPERACILLIN/TAZO 3.375/DEX-IS 50 ML IV SCH ×3 (00:01→12:13)
--- NOTE | 2020-02-23 03:02 | NUR ---
pt in [facility] resting well. denies pain and no distress noted. VSS
[2020-02-23 04:13] LABS: EOSINOPHILS # (AUTO) 0.1 K/uL (0.0-0.4); EOSINOPHILS % (AUTO) 3.5 % (0.0-4.0); HEMATOCRIT 36.7 % (36-54); LYMPHOCYTES # (AUTO) 0.3 K/uL (1.0-5.5); LYMPHOCYTES % (AUTO) 11.2 % (20.5-51.5); MEAN CORPUSCULAR HEMOGLOBIN 29 pg (27-31); MEAN CORPUSCULAR HGB CONC 33 % (32-36); MEAN CORPUSCULAR VOLUME 88 fL (79.0-98.0); MONOCYTES # (AUTO) 0.3 K/uL (0.0-1.0); MONOCYTES % (AUTO) 11.3 % (1.7-9.3); NEUTROPHILS # (AUTO) 1.8 K/uL (1.8-7.7); RED BLOOD CELL COUNT(AUTO) 4.17 MIL/uL (4.2-6.2); RED CELL DISTRIBUTION WIDTH 15.8 % (9.0-15.0); WHITE BLOOD COUNT (AUTO) 2.5 K/uL (4.8-10.8)
[2020-02-23 04:21] LABS: PLATELET COUNT (AUTO) 29 K/uL (130-430)
[2020-02-23 04:30] LABS: INR 1.3 (0.80-1.20); PROTHROMBIN TIME 13.4 SECS (9.5-12.5)
[2020-02-23 04:32] LABS: ALBUMIN 2.9 g/dL (3.4-4.8); CREATININE 1.11 mg/dL (0.55-1.30); POTASSIUM 3.6 mmol/L (3.5-5.1); TOTAL BILIRUBIN 2.6 mg/dL (0.0-1.0)
[2020-02-23] MEDS: NORMAL SALINE 5 ML DISP.SYRIN IVF SCH (06:08)
--- NOTE | 2020-02-23 06:27 | NUR ---
DENIES PAIN AND NO DISTRESS NOTED. VSS. ON [place] WITH SIDE RAILS UP .
--- NOTE | 2020-02-23 07:07 | NUR ---
REPORT TO GAIL STYLES
[2020-02-23] MEDS ORDERED: ASPIRIN 81 MG TAB.CHEW PO SCH (09:00)
[2020-02-23] MEDS ORDERED: PREDNISONE 5 MG TABLET PO SCH (09:00)
[2020-02-23] MEDS ORDERED: CIPROFLOXACIN HCL 500 MG TABLET PO SCH (09:00)
[2020-02-23] MEDS ORDERED: FERROUS SULFATE 325 MG TABLET.DR PO SCH (09:00)
--- NOTE | 2020-02-23 09:49 | NUR ---
FULL HEAD TO TOE ASSESSMENT; PATIENT STATES HIS PAIN IS RESOLVED; PREPARATIONS FOR PARACENTESIS AND DISPOSITION/ADMISSION PENDING; NO OTHER REMARKABLE S/S
[2020-02-23] MEDS: LACTULOSE 20 GM/30 ML UDC PO SCH (09:59)
[2020-02-23] MEDS: PANTOPRAZOLE SODIUM 40 MG TAB PO SCH (10:09)
[2020-02-23] MEDS: traMADol HCL HCL 50 MG TABLET (ULTRAM) PO SCH (10:12)
[2020-02-23] MEDS: RIFAXIMIN 550 MG TABLET PO SCH (10:12)
--- NOTE | 2020-02-23 12:03 | NUR ---
REASSESSMENT; PATIENT REMAINS SEDATE AND ASYMPTOMATIC; DISPOSITION PENDING
--- NOTE | 2020-02-23 15:01 | NUR ---
REASSESSMENT; DR DIAZ HERE TO ASSESS, PATIENT REMAINS ASYMPTOMATIC; PREPARATIONS TO DISCHARGE
--- NOTE | 2020-02-23 15:18 | NUR ---
Patient has DC order from ED , but the nurse has no access for Discharge from [facility]. Print DC instruction for the patient from MST station.
[2020-02-23 15:29] VITALS: BP_SYST 134
--- NOTE | 2020-02-23 15:30 | NUR ---
Patient given written and verbal discharge instructions and verbalizes understanding. ER MD discussed with patient the results and treatment provided. Patient in stable condition. ID arm band removed. IV catheter removed intact and dressing applied, no active bleeding. Rx of CIPRO given. Patient educated on pain management and to follow up with PMD. Pain Scale . Opportunity for questions provided and answered. Medication side effect fact sheet provided.
== END 2020-02-23 15:01 | disposition home or self-care (01) | DRG 432 ==
LOC: SED 09:34 → SMU 15:41
PROVIDERS: ADMIT Internal Medicine; ATTEND Internal Medicine
DX: K74.60 Unspecified cirrhosis of liver (principal); K65.2 Spontaneous bacterial peritonitis; R18.8 Other ascites; D61.818 Other pancytopenia; I25.10 Atherosclerotic heart disease of native coronary artery without angina pectoris; E79.0 Hyperuricemia without signs of inflammatory arthritis and tophaceous disease; K75.81 Nonalcoholic steatohepatitis (NASH); Z20.828 Contact with and (suspected) exposure to other viral communicable diseases
CPT/HCPCS: 36415; 74021; 76857; 80053; 81000-TC; 82140-TC; 83605; 83615-TC; 83690-TC; 83735-TC; 84484; 85025; 85610-TC; 85730-TC; 87040-TC; 93005; J2543; J3370; J7512; U0003-CS

== ENCOUNTER 2020-05-26 13:25 | Outpatient (CLI) | payer BC ==
[~2020-05-26 13:25] MED LIST changes: +ASA81 PO; +CIPR-211 PO; +FER300L PO; -FURO-149 PO; +LOVI120 SQ; +MILK200C5 PO; +PRED5TAB PO; -SPIR25TA PO; +ZINC500P17 PO; +tramadol PO
[2020-05-26 14:23] LABS: BILIRUBIN,URINE NEGATIVE (NEGATIVE); BLOOD, URINE 3+ (NEGATIVE); CLARITY/URINE CLEAR (CLEAR); COLOR,URINE YELLOW (YELLOW); GLUCOSE,URINE NEGATIVE (NEGATIVE); KETONES,URINE NEGATIVE (NEGATIVE); LEUKOCYTE ESTERASE ,URINE NEGATIVE (NEGATIVE); NITRITE, URINE NEGATIVE (NEGATIVE); PROTEIN URINE NEGATIVE (NEGATIVE); UROBILINOGEN,URINE 0.2 (0.2-1.0)
[2020-05-26 14:44] LABS: BACTERIA,URINE None Seen /HPF (None Seen); CALCIUM PHOSPHATE CRYSTALS,UR None Seen /HPF (None Seen); RBC,URINE >100 /HPF (0-3); TRICHOMONAS,URINE None Seen /HPF (None Seen); WBC,URINE NONE SEEN /HPF (0-3); YEAST,URINE None Seen /HPF (None Seen)
== END 2020-05-26 20:48 | disposition home or self-care (01) ==
LOC: SLB 13:25
PROVIDERS: ATTEND Internal Medicine
DX: N39.0 Urinary tract infection, site not specified (principal)
CPT/HCPCS: 81000-TC; 87086

== ENCOUNTER 2021-02-06 14:18 | Outpatient (CLI) | payer BC ==
[~2021-02-06 14:18] MED LIST changes: -CIPR-211 PO; +CIPR500T5 PO
== END 2021-02-06 19:06 | disposition short-term general hospital (02) ==
LOC: SRD 14:18
PROVIDERS: ATTEND Internal Medicine
DX: M77.32 Calcaneal spur, left foot (principal); R60.0 Localized edema

== ENCOUNTER 2021-05-12 14:37 | Emergency (ER) | payer BC ==
[~2021-05-12] VITALS: Ht 180.3 cm; Wt 79.4 kg
[2021-05-12 14:52] VITALS: BP_SYST 124
[2021-05-12 15:35] LABS: BASOPHILS % (AUTO) 1.3 % (0.0-2.0); EOSINOPHILS # (AUTO) 0.1 K/uL (0.0-0.4); EOSINOPHILS % (AUTO) 2.6 % (0.0-4.0); HEMATOCRIT 34.4 % (36-54); HEMOGLOBIN 10.7 g/dL (14.0-18.0); LYMPHOCYTES # (AUTO) 0.4 K/uL (1.0-5.5); LYMPHOCYTES % (AUTO) 11.1 % (20.5-51.5); MEAN CORPUSCULAR HEMOGLOBIN 24 pg (27-31); MEAN CORPUSCULAR HGB CONC 31 % (32-36); MEAN CORPUSCULAR VOLUME 77 fL (79.0-98.0); MONOCYTES # (AUTO) 0.3 K/uL (0.0-1.0); MONOCYTES % (AUTO) 7.4 % (1.7-9.3); NEUTROPHILS # (AUTO) 2.9 K/uL (1.8-7.7); NEUTROPHILS % (AUTO) 77.6 % (40.0-70.0); PLATELET COUNT (AUTO) 61 K/uL (130-430); RED BLOOD CELL COUNT(AUTO) 4.45 MIL/uL (4.2-6.2); RED CELL DISTRIBUTION WIDTH 18.7 % (9.0-15.0); WHITE BLOOD COUNT (AUTO) 3.7 K/uL (4.8-10.8)
[2021-05-12 16:01] LABS: CALCIUM 8.4 mg/dL (8.4-11.0); CREATININE 1.35 mg/dL (0.55-1.30); POTASSIUM 4.6 mmol/L (3.5-5.1)
[2021-05-12 16:08] LABS: ALBUMIN 3.6 g/dL (3.4-4.8); TOTAL BILIRUBIN 2.3 mg/dL (0.0-1.0)
[2021-05-12 20:52] VITALS: BP_SYST 124
== END 2021-05-12 20:52 | disposition home or self-care (01) ==
LOC: SED 14:37
DX: R41.0 Disorientation, unspecified (principal); Z79.899 Other long term (current) drug therapy
CPT/HCPCS: 36415; 80053; 82140; 85025; 99283

== ENCOUNTER 2021-08-13 14:56 | Emergency (ER) | payer BC, SELFPAY ==
[~2021-08-13] VITALS: Ht 170.2 cm; Wt 77.1 kg
[2021-08-13 15:12] VITALS: BP_SYST 161
[2021-08-13] MEDS ORDERED: NACL 0.9% 1,000 ML IV ONE (15:30)
[2021-08-13 16:38] LABS: CALCIUM 8.4 mg/dL (8.4-11.0); CREATININE 1.19 mg/dL (0.55-1.30); POTASSIUM 4.6 mmol/L (3.5-5.1)
[2021-08-13 16:42] LABS: HEMATOCRIT 36.3 % (36-54); HEMOGLOBIN 11.5 g/dL (14.0-18.0); MEAN CORPUSCULAR HEMOGLOBIN 25 pg (27-31); MEAN CORPUSCULAR HGB CONC 32 % (32-36); MEAN CORPUSCULAR VOLUME 78 fL (79.0-98.0); RED BLOOD CELL COUNT(AUTO) 4.63 MIL/uL (4.2-6.2); RED CELL DISTRIBUTION WIDTH 19.4 % (9.0-15.0); WHITE BLOOD COUNT (AUTO) 4.3 K/uL (4.8-10.8)
[2021-08-13 16:43] LABS: ALBUMIN 3.2 g/dL (3.4-4.8); TOTAL BILIRUBIN 2.2 mg/dL (0.0-1.0)
[2021-08-13 17:05] LABS: PLATELET COUNT (AUTO) 39 K/uL (130-430)
[2021-08-13 17:14] LABS: INR 1.2 (0.80-1.20)
[2021-08-13] MEDS ORDERED: MAG HYDROX/AL HYDROX/SIMETH 30 ML, DICYCLOMINE HCL 20 MG, LIDOCAINE VISCOUS 2% 15ML (PO... PO ONE ×3 (17:30)
[2021-08-13] MEDS ORDERED: AMOX-423 PO (17:43)
[2021-08-13 18:07] LABS: BILIRUBIN,URINE NEGATIVE (NEGATIVE); BLOOD, URINE NEGATIVE (NEGATIVE); CLARITY/URINE CLEAR (CLEAR); COLOR,URINE YELLOW (YELLOW); GLUCOSE,URINE NEGATIVE (NEGATIVE); KETONES,URINE NEGATIVE (NEGATIVE); LEUKOCYTE ESTERASE ,URINE NEGATIVE (NEGATIVE); NITRITE, URINE NEGATIVE (NEGATIVE); PROTEIN URINE NEGATIVE (NEGATIVE); UROBILINOGEN,URINE 0.2 (0.2-1.0)
[2021-08-13 18:08] LABS: BAND % (MANUAL) 21 % (0-6); BASOPHILS % (MANUAL) 0 % (0-2); EOSINOPHILS % (MANUAL) 1 % (0-7); LYMPHOCYTES % (MANUAL) 3 % (20-46); MONOCYTES % (MANUAL) 5 % (0-11)
[2021-08-13 18:26] VITALS: BP_SYST 161
== END 2021-08-13 18:24 | disposition home or self-care (01) ==
LOC: SED 14:56
DX: K74.60 Unspecified cirrhosis of liver (principal); R10.13 Epigastric pain; I10 Essential (primary) hypertension; Z79.899 Other long term (current) drug therapy; Z20.822 Contact with and (suspected) exposure to COVID-19
CPT/HCPCS: 36415; 80053; 81003; 82140; 83690; 85007; 85027; 85610; 85730; 87040; 87426; 93005; 96360; 96361; 99284; J2001; J7030

== ENCOUNTER 2021-09-03 16:40 | Outpatient (CLI) | payer BC ==
[~2021-09-03 16:40] MED LIST changes: +AMOX-423 PO
== END 2021-09-03 20:32 | disposition home or self-care (01) ==
LOC: SRD 16:40
DX: T14.90XA Injury, unspecified, initial encounter (principal); I67.2 Cerebral atherosclerosis; G31.9 Degenerative disease of nervous system, unspecified; M19.012 Primary osteoarthritis, left shoulder; M24.89 Other specific joint derangement of other specified joint, not elsewhere classified; W19.XXXA Unspecified fall, initial encounter; Y93.89 Activity, other specified; Y92.89 Other specified places as the place of occurrence of the external cause; Y99.8 Other external cause status
CPT/HCPCS: 70450-TC; 73030; 76376

== ENCOUNTER 2021-09-17 13:45 | Outpatient (CLI) | payer BC ==
[2021-09-17 14:32] LABS: BASOPHILS % (AUTO) 0.5 % (0.0-2.0); EOSINOPHILS % (AUTO) 0.9 % (0.0-4.0); HEMATOCRIT 38.9 % (36-54); HEMOGLOBIN 12.1 g/dL (14.0-18.0); LYMPHOCYTES # (AUTO) 0.3 K/uL (1.0-5.5); LYMPHOCYTES % (AUTO) 7.1 % (20.5-51.5); MEAN CORPUSCULAR HEMOGLOBIN 25 pg (27-31); MEAN CORPUSCULAR HGB CONC 31 % (32-36); MEAN CORPUSCULAR VOLUME 81 fL (79.0-98.0); MONOCYTES # (AUTO) 0.4 K/uL (0.0-1.0); MONOCYTES % (AUTO) 9.5 % (1.7-9.3); NEUTROPHILS # (AUTO) 3.6 K/uL (1.8-7.7); PLATELET COUNT (AUTO) 57 K/uL (130-430); RED BLOOD CELL COUNT(AUTO) 4.82 MIL/uL (4.2-6.2); RED CELL DISTRIBUTION WIDTH 19.3 % (9.0-15.0); WHITE BLOOD COUNT (AUTO) 4.4 K/uL (4.8-10.8)
[2021-09-17 14:55] LABS: PROTHROMBIN TIME 30.3 SECS (9.5-12.5)
== END 2021-09-17 20:18 | disposition home or self-care (01) ==
LOC: SLB 13:45
PROVIDERS: ATTEND Internal Medicine
DX: K62.5 Hemorrhage of anus and rectum (principal)
CPT/HCPCS: 36415; 85025; 85610-TC

== ENCOUNTER 2024-03-09 15:14 | Outpatient (CLI) | payer BC ==
[2024-03-09 15:57] LABS: HEMATOCRIT 32.9 % (36-54); MEAN CORPUSCULAR HEMOGLOBIN 31 pg (27-31); MEAN CORPUSCULAR HGB CONC 34 % (32-36); MEAN CORPUSCULAR VOLUME 92 fL (79.0-98.0); RED BLOOD CELL COUNT(AUTO) 3.59 MIL/uL (4.2-6.2); WHITE BLOOD COUNT (AUTO) 3.6 K/uL (4.8-10.8)
[2024-03-09 16:07] LABS: INR 2.5 (0.80-1.20); PROTHROMBIN TIME 24.6 SECS (9.5-12.5)
[2024-03-09 16:11] LABS: PLATELET COUNT (AUTO) 33 K/uL (130-430)
[2024-03-09 16:20] LABS: ANISOCYTOSIS 1+; BAND % (MANUAL) 2 % (0-6); BASOPHILS % (MANUAL) 0 % (0-2); EOSINOPHILS % (MANUAL) 12 % (0-7); LYMPHOCYTES % (MANUAL) 13 % (20-46); MONOCYTES % (MANUAL) 6 % (0-11); OVALOCYTES FEW; PLATELET ESTIMATE DECREASED (ADEQUATE)
[2024-03-09 16:41] LABS: ALBUMIN 3.4 g/dL (3.4-4.8); CALCIUM 8.5 mg/dL (8.4-11.0); CREATININE 1.18 mg/dL (0.55-1.30); POTASSIUM 4.2 mmol/L (3.5-5.1); TOTAL BILIRUBIN 1.9 mg/dL (0.0-1.0); TOTAL PROTEIN, SERUM 7.8 g/dL (6.4-8.3)
== END 2024-03-09 19:51 | disposition home or self-care (01) ==
LOC: SLB 15:14
PROVIDERS: ATTEND Internal Medicine
DX: D64.9 Anemia, unspecified (principal); R79.1 Abnormal coagulation profile
CPT/HCPCS: 36415; 80053; 83540; 83550; 85007; 85027; 85610